=== PATIENT | female | born 1955 | race Caucasian/White ===

== ENCOUNTER 2017-02-02 10:03 | Observation (INO) | payer OTHER ==
[~2017-02-02] VITALS: Ht 165.1 cm; Wt 59.6 kg
[~2017-02-02 10:03] MED LIST: ALPR.25T PO; ALPR0.254 PO; AMIT25TA9 PO; AMLO10TA PO; ASP325TEC PO; ASP81TEC PO; ASPI-586 PO; ASPI-86 PO; ATOR20TA66 PO; ATRV10T PO; CEPH500C PO; CITA10TA70 PO; CLOP75TA PO; CLPD75T PO; CYCL10TA9 PO; FURO40TA4 PO; GLIP2.5T15 PO; GLIP5TAB13 PO; HYDR-3063 PO; HYDR-34 PO; HYDR118S10 PO; INSU100I14 SQ; INSU100I29 SQ; ISM30TCR PO; ISOS60TA PO; KCL10CCR PO; KCL20TCR PO; LISI-556 PO; LISI10TA2 PO; LISI1TAB PO; LVT.025T PO; MELA10CA PO; MELO-198 PO; METF-380 PO; METF500T4 PO; METO-333 PO; METO-351 PO; METO25TA PO; METO25TA2 PO; MTP25TSR PO; NTR.4SL SL; OMEG1CAP53 PO; OMEP40CA36 PO; OMG1KC PO; PNT40TEC PO; PRAV40TA PO; PROM12.59 PO; RABE20TA PO; RANO10003 PO; RANO500T PO; RANO500T2 PO; RANOLAZINE PO; SIMV20TA3 PO; SIMV40TA2 PO; TRAM50TA2 PO; VNL75CCR PO; ZLP5T PO; ZOLP5TAB6 PO
[2017-02-02 10:25] LABS: BASOPHILS % (AUTO) 0 % (0-10); EOSINOPHILS # (AUTO) 0.1 10^3/uL (0.0-0.3); EOSINOPHILS % (AUTO) 2 % (0-10); LYMPHOCYTES # (AUTO) 1.9 X 10^3 (1.0-4.0); LYMPHOCYTES % (AUTO) 30 % (12-44); MEAN CORPUSCULAR HEMOGLOBIN 30 PG (25-34); MEAN CORPUSCULAR HGB CONC 33 G/DL (32-36); MEAN CORPUSCULAR VOLUME 89 FL (80-99); MEAN PLATELET VOLUME 10.5 FL (7.4-10.4); MONOCYTES # (AUTO) 0.4 X 10^3 (0.0-1.0); MONOCYTES % (AUTO) 6 % (0-12); NEUTROPHILS # (AUTO) 4.1 X 10^3 (1.8-7.8); NEUTROPHILS % (AUTO) 62 % (42-75); PLATELET COUNT 229 10^3/uL (130-400); RED BLOOD COUNT 4.55 10^6/uL (4.35-5.85); RED CELL DISTRIBUTION WIDTH 12.5 % (10.0-14.5); WHITE BLOOD COUNT 6.6 10^3/uL (4.3-11.0)
[2017-02-02 10:35] LABS: INR 0.9 (0.8-1.4); PROTHROMBIN TIME PATIENT 12.1 SEC (12.2-14.7)
[2017-02-02 10:44] LABS: ALANINE AMINOTRANSFERASE 16 U/L (0-55); ALBUMIN 3.9 GM/DL (3.2-4.5); ALCOHOL < 10 MG/DL (<10); ANION GAP 14 MMOL/L (5-14); ASPARTATE AMINO TRANSFERASE 12 U/L (5-34); BILIRUBIN,TOTAL 0.5 MG/DL (0.1-1.0); BLOOD UREA NITROGEN 19 MG/DL (7-18); BUN/CREATININE RATIO 16; CALCIUM 9.2 MG/DL (8.5-10.1); CARBON DIOXIDE 21 MMOL/L (21-32); CHLORIDE 101 MMOL/L (98-107); CREATINE KINASE 70 U/L (29-168); CREATININE SERUM 1.16 MG/DL (0.60-1.30); GFR ESTIMATED 47; MAGNESIUM 1.6 MG/DL (1.8-2.4); POTASSIUM 4.3 MMOL/L (3.6-5.0); SODIUM 136 MMOL/L (135-145); TOTAL PROTEIN 6.5 GM/DL (6.4-8.2)
--- NOTE | 2017-02-02 10:45 | Diagnostic Imaging Report ---
INDICATION: Fatigue, coronary artery disease. COMPARISON: 03/20/2015. Single view of the chest demonstrates clear lungs bilaterally. The heart is mildly prominent but stable. Sternal wires midline. No pneumothorax, effusion, or infiltrate seen. IMPRESSION: No acute cardiopulmonary findings. Dictated by: Dictated on workstation # [id number]
[2017-02-02 10:49] LABS: GLUCOSE 466 MG/DL (70-105)
[2017-02-02 11:03] LABS: TROPONIN I < 0.30 NG/ML (<0.30)
--- NOTE | 2017-02-02 11:19 | Diagnostic Imaging Report ---
CT of the head without contrast. INDICATION : Blurred vision. Contiguous axial sections were taken through the skull. There are no prior studies available for comparison. There is no mass, shift of the midline, or hemorrhage to suggest an acute intracranial abnormality. The ventricles are not abnormally dilated. There are vague areas of low-density in the periventricular white matter bilaterally. There is also a small area of diminished density in the left basal ganglia. These findings are nonspecific but may be secondary to encephalomalacia from microvascular ischemia. There is no evidence for an asymmetric hyperdense vessel to suggest an area of acute ischemia. There is cortical atrophy present. The degree of atrophy is consistent with the patient's age. The bone windows show no sign of a fracture or of a destructive lesion. The orbits and sinuses were not visualized in their entirety, but where visualized there is no acute abnormality. IMPRESSION: 1. There is no evidence for an acute intracranial abnormality. There is no sign of a mass lesion either. 2. If clinical concern regarding an underlying abnormality persists, then MRI would be recommended for further study. Dictated by: Dictated on workstation # [id number]
--- NOTE | 2017-02-02 11:24 | ED General ---
General Chief Complaint: Neurological Problems Stated Complaint: TIRED/BLURRED VISION/AMS Nursing Triage Note: AMB TO ED ACCOMPIED BY MALE REPORTS SINCE YESTERDAY HAD BEEN CONFUSED AT TIMES. PATIENT REPORTS HAS BEEN TIRED. 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 ON ADMIT SLOW TO ANSWER QUESTIONS,BUT MALE FRIEND ANSWERS QUESTION, PATIETN BECOMES UPSET. WAS DRINKING PEPSI ON ADMIT. MALE FRIEND REPORTS SHE IS DIABETIC,BUT WILL NOT EAT RIGHT. Nursing Sepsis Screen: No Definite Risk Source of Information: Patient, Other (MALE S.O.) Exam Limitations: Other (BOTH PT AND MALE S.O. ARE POOR HISTORIANS AND S.O. INTERJECTS AND TRIES TO ANSWER FOR PT,AND STILL GIVES VERY LIMITED INFORMATION) History of Present Illness Time Seen by Provider: 10:08 Initial Comments PT ARRIVES VIA POV MALE S.O. STATES "SHE'S BEEN TALKING OUT OF HER HEAD AND SHE WANTS TO SLEEP ALL THE TIME" SINCE YESTERDAY PT IS DIABETIC, DOES NOT CHECK BLOOD SUGAR, DRINKING PEPSI AND HAD A SWEET ROLL THIS AM, AND HAS NOT TAKEN ANY OF HER MEDICATION SINCE YESTERDAY--IS ON BOTH INSULIN AND MEFORMIN FOR DIABETES MALE S.O. REPORTS THAT SHE DOES NOT FOLLOW ANY KIND OF DIET, DRINKS REGULAR POP ALL THE TIME, AND DOES NOT CHECK BLOOD SUGAR. PT STATES SHE WORKED ALL DAY YESTERDAY AND WENT TO WORK TODAY AT [employer]-- DROVE HERSELF THERE. APPARENTLY WAS SENT HOME FROM WORK DUE TO CONFUSION TODAY PT IS ABLE TO RECALL ALL EVENTS OF TODAY AND YESTERDAY AND THE WEEK, BUT THOUGHT PROCESS IS SOMEWHAT SCATTERED PT WAS SEEN AT [facility] ON Friday01/30/17 AND WAS GIVEN RX'S FOR METOPROLOL. LISINOPRIL AND LIPITOR PT STATES SHE HAS BEEN ON THEM IN THE PAST, BUT HAD TO STOP THEM BECAUSE THEY MADE HER SLEEPY, BUT THEN RESTARTED THEM AGAIN PT WITH LONG HISTORY OF NON-COMPLIANCE IN ALL ASPECTS OF CARE, AND PER OLD RECORDS, HAS QUIT TAKING HER MEDICATIONS AT TIMES IN THE PAST. PCP: [facility] Allergies and Home Medications Allergies Coded Allergies: No Known Drug Allergies (Unverified , 03/13/10) Home Medications Aspirin 81 Mg Tablet.dr, 81 MG PO DAILY, (Reported) Clopidogrel Bisulfate 75 Mg Tablet, 75 MG PO DAILY, (Reported) LAST FILLED #30 09-27-15 Insulin Aspart 300 Units/3 Ml Solution, 6 UNITS SQ AC, #1 Ref 0 Prescribed by: KACIE BADILLO on 09/19/152305 Insulin Detemir 100 Unit/1 Ml Insuln.pen, 10 UNIT SQ BID, #1 Ref 0 Prescribed by: KACIE BADILLO on 09/19/152305 Lisinopril 10 Mg Tablet, 10 MG PO DAILY, (Reported) Metoprolol Succinate 25 Mg Tab.er.24h, 50 MG PO DAILY, (Reported) Tramadol HCl 50 Mg Tablet, 50 MG PO Q4H PRN for PAIN, #14 Ref 0 Prescribed by: KACIE BADILLO on 10/04/15 1840 Constitutional: see HPI, malaise, weakness Respiratory: no symptoms reported, No cough, No short of breath Cardiovascular: no symptoms reported, No chest pain, No palpitations, No syncope Gastrointestinal: no symptoms reported, No abdominal pain, No diarrhea, No loss of appetite, No nausea Genitourinary: no symptoms reported Musculoskeletal: no symptoms reported Skin: no symptoms reported Psychiatric/Neurological: See HPI Hematologic/Lymphatic: No Symptoms Reported Immunological/Allergic: no symptoms reported Past Flmqlmf-Oofmjp-Tvvyrt Hx Patient Social History Alcohol Use: Denies Use Recreational Drug Use: No Smoking Status: Former Smoker (2 PPD, QUIT APPROXIMATELY 2011) Former Smoker/When Quit: Jun 30, 2009 Recent Foreign Travel: No Contact w/Someone Who Travel: No Recent Infectious Disease Expo: No Recent Hopitalizations: Yes Immunizations Up To Date Tetanus Booster (TDap): Unknown Date of Pneumonia Vaccine: Apr 18, 2013 Date of Influenza Vaccine: Apr 18, 2013 Seasonal Allergies Seasonal Allergies: No Surgeries HX Surgeries: Yes (STENTS X2,HYST/BSO ) Surgeries: Appendectomy, CABG, Coronary Stent, Gallbladder, Hysterectomy, Oophorectomy, Tonsillectomy Respiratory Hx Respiratory Disorders: Yes (HAS HOME O2 USES PRN) Respiratory Disorders: COPD Cardiovascular Hx 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) Cardiac Disorders: Coronary Artery Disease, High Cholesterol, Hypertension, Peripheral Vascular Neurological Hx Neurological Disorders: No Reproductive System Hx Reproductive Disorders: No (HYSTERECTOMY) Female Reproductive Disorders: Denies 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 Genitourinary Hx Genitourinary Disorders: No Gastrointestinal Hx Gastrointestinal Disorders: Yes Gastrointestinal Disorders: Gastroesophageal Reflux Musculoskeletal Hx Musculoskeletal Disorders: Yes Musculoskeletal Disorders: Arthritis, Chronic Back Pain Endocrine Hx Endocrine Disorders: Yes (INSULIN + PILLS) Endocrine Disorders: Diabetes, Insulin dep, Diabetes, Non-Insulin dep HEENT HX ENT Disorders: Yes HEENT Disorders: Cataract Loss of Vision: Denies Hearing Impairment: Denies Cancer Hx Cancer: No Psychosocial Hx Psychiatric Problems: Yes Behavioral Health Disorders: Depression Integumentary HX Skin/Integumentary Disorder: No Blood Transfusions Hx Blood Disorders: No Adverse Reaction to a Blood Tr: No Family Medical History Significant Family History: Heart Disease, Cancer Family Medial History: Cancer 03 FATHER 03 MOTHER Cancer of colon 03 FATHER Family history: Cardiovascular disease 03 FATHER Malignant neoplasm of lung 03 MOTHER Myocardial infarction 03 FATHER Physical Exam Vital Signs Vital Sign - Last 12Hours 02/02/17 10:03 Temp 97.9 Pulse 70 Resp 18 B/P (MAP) 207/80 Pulse Ox 94 O2 Delivery Room Air Capillary Refill : Less Than 3 Seconds General Appearance: No Apparent Distress, WD/WN, Other (SOMEWHAT DROWSY ON ARRIVAL, SLIGHTLY SLOW MENTATION; GAIT SLIGHTLY UNSTEADY, BUT IS ABLE TO WALK ON HER OWN) HEENT: PERRL/EOMI, Normal ENT Inspection Neck: Full Range of Motion, Normal Inspection, Non Tender, Supple Respiratory: Normal Breath Sounds, No Accessory Muscle Use, No Respiratory Distress Cardiovascular: Regular Rate, Rhythm, No Edema, No JVD, No Murmur, Normal Peripheral Pulses Gastrointestinal: Normal Bowel Sounds, No Organomegaly, No Pulsatile Mass, Non Tender, Soft Back: No CVA Tenderness Extremity: Normal Capillary Refill, Normal Inspection, Normal Range of Motion, Non Tender, No Calf Tenderness, No Pedal Edema Neurologic/Psychiatric: Alert, Oriented x3, No Motor/Sensory Deficits, affiliate manager II- XII Norm as Tested, No Aphasia, Other (DROWSY, SLIGHTLY SLOW MENTATION, THOUGHT PROCESS SOMEWHAT SCATTERED, BUT NOT ACTUALLY CONFUSED. SPEECH IS CLEAR) Skin: Normal Color, Warm/Dry Progress/Results/Core Measures Results/Orders Lab Results Laboratory Tests Test 02/02/17 10:15 02/02/17 10:17 02/02/17 11:25 02/02/17 12:18 Range/Units Glucometer 434 *H 337 H 70-110 MG/DL White Blood Count 6.6 4.3-11.0 10^3/uL Red Blood Count 4.55 4.35-5.85 10^6/uL Hemoglobin 13.5 11.5-16.0 G/DL Hematocrit 41 35-52 % Mean Corpuscular Volume 89 80-99 FL Mean Corpuscular Hemoglobin 30 25-34 PG Mean Corpuscular Hemoglobin Concent 33 32-36 G/DL Red Cell Distribution Width 12.5 10.0-14.5 % Platelet Count 229 130-400 10^3/uL Mean Platelet Volume 10.5 H 7.4-10.4 FL Neutrophils (%) (Auto) 62 42-75 % Lymphocytes (%) (Auto) 30 12-44 % Monocytes (%) (Auto) 6 0-12 % Eosinophils (%) (Auto) 2 0-10 % Basophils (%) (Auto) 0 0-10 % Neutrophils # (Auto) 4.1 1.8-7.8 X 10^3 Lymphocytes # (Auto) 1.9 1.0-4.0 X 10^3 Monocytes # (Auto) 0.4 0.0-1.0 X 10^3 Eosinophils # (Auto) 0.1 0.0-0.3 10^3/uL Basophils # (Auto) 0.0 0.0-0.1 10^3/uL Prothrombin Time 12.1 L 12.2-14.7 SEC INR Comment 0.9 0.8-1.4 Activated Partial Thromboplast Time 20 L 24-35 SEC Sodium Level 136 135-145 MMOL/L Potassium Level 4.3 3.6-5.0 MMOL/L Chloride Level 101 98-107 MMOL/L Carbon Dioxide Level 21 21-32 MMOL/L Anion Gap 14 5-14 MMOL/L Blood Urea Nitrogen 19 H 7-18 MG/DL Creatinine 1.16 0.60-1.30 MG/DL Estimat Glomerular Filtration Rate 47 BUN/Creatinine Ratio 16 Glucose Level 466 *H 70-105 MG/DL Calcium Level 9.2 8.5-10.1 MG/DL Magnesium Level 1.6 L 1.8-2.4 MG/DL Total Bilirubin 0.5 0.1-1.0 MG/DL Aspartate Amino Transf (AST/SGOT) 12 5-34 U/L Alanine Aminotransferase (ALT/SGPT) 16 0-55 U/L Alkaline Phosphatase 88 40-136 U/L Total Creatine Kinase 70 29-168 U/L Creatine Kinase MB 2.0 <6.6 NG/ML Troponin I < 0.30 <0.30 NG/ML Total Protein 6.5 6.4-8.2 GM/DL Albumin 3.9 3.2-4.5 GM/DL TSH Sur[place] Testing 1.68 0.35-4.94 UIU/ML Serum Alcohol < 10 <10 MG/DL Urine Color YELLOW Urine Clarity CLEAR Urine pH 6 5-9 Urine Specific Jenkins 1.010 L 1.016-1.022 Urine Protein 2+ H NEGATIVE Urine Glucose (UA) 4+ H NEGATIVE Urine Ketones NEGATIVE NEGATIVE Urine Nitrite NEGATIVE NEGATIVE Urine Bilirubin NEGATIVE NEGATIVE Urine Urobilinogen NORMAL NORMAL MG/DL Urine Leukocyte Esterase NEGATIVE NEGATIVE Urine RBC (Auto) NEGATIVE NEGATIVE Urine RBC NONE /HPF Urine WBC NONE /HPF Urine Squamous Epithelial Cells RARE /HPF Urine Crystals NONE /LPF Urine Bacteria NEGATIVE /HPF Urine Casts NONE /LPF Urine Mucus NEGATIVE /LPF Urine Culture Indicated NO Urine Opiates Screen NEGATIVE NEGATIVE Urine Oxycodone Screen NEGATIVE NEGATIVE Urine Methadone Screen NEGATIVE NEGATIVE Urine Propoxyphene Screen NEGATIVE NEGATIVE Urine Barbiturates Screen NEGATIVE NEGATIVE Ur Tricyclic Antidepressants Screen NEGATIVE NEGATIVE Urine Phencyclidine Screen NEGATIVE NEGATIVE Urine Amphetamines Screen NEGATIVE NEGATIVE Urine Methamphetamines Screen NEGATIVE NEGATIVE Urine Benzodiazepines Screen NEGATIVE NEGATIVE Urine Cocaine Screen NEGATIVE NEGATIVE Urine Cannabinoids Screen NEGATIVE NEGATIVE Test 02/02/17 13:11 02/02/17 16:31 Range/Units Glucometer 295 H 224 H 70-110 MG/DL My Orders Orders - JASMIN RUSHING DO Saline Lock/Iv-Start (02/02/17 10:13) Ekg Tracing (02/02/17 10:13) Monitor-Rhythm Ecg Trace Only (02/02/17 10:13) Ct Head Wo-R/O Stroke (02/02/17 10:13) Alcohol (02/02/17 10:13) Cbc With Automated Diff (02/02/17 10:13) Comprehensive Metabolic Panel (02/02/17 10:13) Creatine Kinase (02/02/17 10:13) Creatine Kinase Mb (02/02/17 10:13) Drug Screen Stat (Urine) (02/02/17 10:13) Magnesium (02/02/17 10:13) Protime With Inr (02/02/17 10:13) Partial Thromboplastin Time (02/02/17 10:13) Thyroid Analyzer (02/02/17 10:13) Troponin I (02/02/17 10:13) Ua Culture If Indicated (02/02/17 10:13) Chest 1 View, Ap/Pa Only (02/02/17 10:13) Arterial Blood Gas (02/02/17 10:24) Saline Lock/Iv-Start (02/02/17 11:27) Ns Iv 1000 Ml (Sodium Chloride 0.9%) (02/02/17 11:27) Insulin (Regular) Human (Humulin R (Per (02/02/17 11:30) Medications Given in ED Current Medications Medications Dose Ordered Sig/Sean Route Start Time Stop Time Status Last Admin Dose Admin Insulin Human Regular 20 unit ONCE ONCE IV 02/02/17 11:30 02/02/17 11:31 DC 02/02/17 11:42 20 UNIT Sodium Chloride 1,000 ml @ 0 mls/hr Q0M ONCE IV 02/02/17 11:27 02/02/17 11:29 DC 02/02/17 11:42 1,000 MLS/HR Vital Signs/I&O Vital Sign - Last 12Hours 02/02/17 02/02/17 02/02/17 02/02/17 10:03 12:32 13:00 13:05 Temp 97.9 97.9 Pulse 70 62 55 Resp 18 18 18 B/P (MAP) 207/80 169/76 Pulse Ox 94 98 94 95 O2 Delivery Room Air Room Air Room Air 02/02/17 16:00 Temp 97.4 Pulse 64 Resp 18 B/P (MAP) 176/83 Pulse Ox 95 O2 Delivery Room Air Blood Pressure Mean: 122 Point of Care Testing Finger Stick Blood Glucose: 424 Blood Glucose Action Taken: NOTIFIED. Progress Note : Progress Note NO DETERIORATION IN PT'S CONDITION DURING ER STAY PT RESTED/SLEPT FOR MOST OF ER STAY ACCUCHECK 337 AT TIME OF ADMIT ECG Initial ECG Impression Time: 10:25 Initial ECG Rate: 75 Initial ECG Rhythm: Normal Sinus Initial ECG Impression: Nonspecific Changes Diagnostic Imaging Comments CT HEAD--NO ACUTE PROCESS, CHRONIC CHANGES CXR--NO ACUTE PROCESS PER RADIOLOGIST REPORTS @ 1127 Departure Communication Progress Notes SPOKE WITH DR. DAVIDSON, ACCEPTS PT FOR ADMIT. Impression Impression: Primary Impression: Uncontrolled diabetes mellitus with hyperglycemia Additional Impressions: Altered mental status Non-compliance Disposition: ADMITTED INPATIENT Condition: Stable Decision to Admit Reason: Admit from ER (General) Decision to Admit/Date: Feb 02, 2017 Time/Decision to Admit Time: 11:30 Departure-Patient Inst. Referrals: [facility] (PCP/Family) Primary Care Physician JASMIN RUSHING DO Feb 02, 2017 11:24
[2017-02-02] MEDS ORDERED: NS IV 1000 ML 1,000 ML IV ONE (11:27)
[2017-02-02] MEDS ORDERED: inSUlin (REGULAR) HUMAN 1 UNIT/0.01 ML (CHARGE PER UNIT) IV ONE (11:30)
[2017-02-02 11:34] LABS: BILIRUBIN,URINE NEGATIVE (NEGATIVE); KETONES,URINE NEGATIVE (NEGATIVE); LEUKOCYTE ESTERASE ,URINE NEGATIVE (NEGATIVE); NITRITE,URINE NEGATIVE (NEGATIVE); PH,URINE 6 (5-9); PROTEIN,URINE 2+ (NEGATIVE); UROBILINOGEN,URINE NORMAL (NORMAL)
[2017-02-02 11:41] LABS: SQUAMOUS EPITHELIAL CELL,UR RARE /HPF
[2017-02-02 13:00] VITALS: BP 169/76
[2017-02-02] MEDS: NS IV 1000 ML 1,000 ML IV SCH ×2 (13:10→21:10)
[2017-02-02] MEDS ORDERED: CATHETER FLUSH 10 ML SYR IV PRN (13:15)
[2017-02-02 16:00] VITALS: BP 176/83
[2017-02-02] MEDS: inSUlin (REGULAR) HUMAN 1 UNIT/0.01 ML (CHARGE PER UNIT) SC SCH ×2 (17:31→21:08)
[2017-02-02 19:20] VITALS: BP 159/78
[2017-02-02 23:35] VITALS: BP 157/82
[2017-02-03 03:20] VITALS: BP 136/82
[2017-02-03 04:51] LABS: BASOPHILS % (AUTO) 0 % (0-10); EOSINOPHILS # (AUTO) 0.1 10^3/uL (0.0-0.3); EOSINOPHILS % (AUTO) 2 % (0-10); LYMPHOCYTES # (AUTO) 2.3 X 10^3 (1.0-4.0); LYMPHOCYTES % (AUTO) 42 % (12-44); MEAN CORPUSCULAR HEMOGLOBIN 29 PG (25-34); MEAN CORPUSCULAR HGB CONC 33 G/DL (32-36); MEAN CORPUSCULAR VOLUME 90 FL (80-99); MEAN PLATELET VOLUME 10.5 FL (7.4-10.4); MONOCYTES # (AUTO) 0.6 X 10^3 (0.0-1.0); MONOCYTES % (AUTO) 10 % (0-12); NEUTROPHILS # (AUTO) 2.5 X 10^3 (1.8-7.8); NEUTROPHILS % (AUTO) 45 % (42-75); PLATELET COUNT 217 10^3/uL (130-400); RED BLOOD COUNT 4.26 10^6/uL (4.35-5.85); RED CELL DISTRIBUTION WIDTH 12.3 % (10.0-14.5); WHITE BLOOD COUNT 5.4 10^3/uL (4.3-11.0)
[2017-02-03 05:21] LABS: ALBUMIN 3.2 GM/DL (3.2-4.5); BILIRUBIN,TOTAL 0.4 MG/DL (0.1-1.0); CALCIUM 8.5 MG/DL (8.5-10.1); CREATININE SERUM 0.97 MG/DL (0.60-1.30); TOTAL PROTEIN 5.4 GM/DL (6.4-8.2)
[2017-02-03] MEDS: NS IV 1000 ML 1,000 ML IV SCH ×2 (06:11→13:30)
[2017-02-03] MEDS: inSUlin (REGULAR) HUMAN 1 UNIT/0.01 ML (CHARGE PER UNIT) SC SCH ×3 (06:11→16:34)
[2017-02-03 08:00] VITALS: BP 198/90
--- NOTE | 2017-02-03 10:13 | Short Stay Summary ---
HPI History of Present Illness: 62yo woman presented to hospital last night with complaints of confusion. Patient states she had gone to work at the [employer] and became increasingly confused. She does not remember coming to hospital. She does have diabetes and has not seen her PCP in a long time. She gets her insulin from [facility] but does not know the name of her PCP. She denies any illicit drug intake or pills not prescribed to her. Does not drink alcohol regularly. Denies any neurological deficits such as paresthesias or weakness. Source: patient Exam Limitations: no limitations Date seen by provider: Feb 03, 2017 Time Seen by Provider: 08:30 Attending Physician Nohelia Bowles MD PCP [facility] Date of Admission Feb 02, 2017 at 12:12 pm Home Medications Home Medications Reviewed patient Home Medication Reconciliation Form Allergies Coded Allergies: No Known Drug Allergies (Unverified , 03/13/10) RLP-Goabxl-Onrpyb Hx Patient Social History Alcohol Use: Denies Use Recreational Drug Use: No Smoking Status: Former Smoker (2 PPD, QUIT APPROXIMATELY 2011) Former smoker/When Quit: Jun 30, 2009 Recent Foreign Travel: No Contact w/other who traveled: No Recent Hopitalizations: Yes Recent Infectious Disease Expo: No Physical Abuse Screen: No Sexual Abuse: No Immunizations Up To Date Tetanus Booster (TDap): Unknown Date of Pneumonia Vaccine: Apr 18, 2013 Date of Influenza Vaccine: Apr 18, 2013 Past Medical History 1. CAD- CABG x 3. Cath with PTCA x2 to RCA by Dr. Nova 01-09, Cath 02-19-13 with recommendation for staged procedure in the RCA for an area between the stents. 2. CP- Unstable angina 3. Chronic Compensated Cardiomyopathy with and ejection fraction of 45%- on AUGUSTINE-I 4. Diabetes 5. Depression 6. Hypertension 7. Osteoarthritis 8. SSS with bradycardia- inability to tolerate Beta Blockers 9. COPD-uses home O2 PRN 10. ALBERTO w BSO 1980 11. Tonsillectomy 18 years of age Family Medical History Significant Family History: Heart Disease, Cancer Family History: Cancer 03 FATHER 03 MOTHER Cancer of colon 03 FATHER Family history: Cardiovascular disease 03 FATHER Malignant neoplasm of lung 03 MOTHER Myocardial infarction 03 FATHER Review of Systems ([facility]) Constitutional: no symptoms reported All Other Systems Reviewed Negative Unless Noted: Yes (Negative excepted noted.) Reviewed Test Results Reviewed Test Results Lab Laboratory Tests Test 02/02/17 10:15 02/02/17 10:17 02/02/17 11:25 02/02/17 12:18 Range/Units Glucometer 434 *H 337 H 70-110 MG/DL White Blood Count 6.6 4.3-11.0 10^3/uL Red Blood Count 4.55 4.35-5.85 10^6/uL Hemoglobin 13.5 11.5-16.0 G/DL Hematocrit 41 35-52 % Mean Corpuscular Volume 89 80-99 FL Mean Corpuscular Hemoglobin 30 25-34 PG Mean Corpuscular Hemoglobin Concent 33 32-36 G/DL Red Cell Distribution Width 12.5 10.0-14.5 % Platelet Count 229 130-400 10^3/uL Mean Platelet Volume 10.5 H 7.4-10.4 FL Neutrophils (%) (Auto) 62 42-75 % Lymphocytes (%) (Auto) 30 12-44 % Monocytes (%) (Auto) 6 0-12 % Eosinophils (%) (Auto) 2 0-10 % Basophils (%) (Auto) 0 0-10 % Neutrophils # (Auto) 4.1 1.8-7.8 X 10^3 Lymphocytes # (Auto) 1.9 1.0-4.0 X 10^3 Monocytes # (Auto) 0.4 0.0-1.0 X 10^3 Eosinophils # (Auto) 0.1 0.0-0.3 10^3/uL Basophils # (Auto) 0.0 0.0-0.1 10^3/uL Prothrombin Time 12.1 L 12.2-14.7 SEC INR Comment 0.9 0.8-1.4 Activated Partial Thromboplast Time 20 L 24-35 SEC Sodium Level 136 135-145 MMOL/L Potassium Level 4.3 3.6-5.0 MMOL/L Chloride Level 101 98-107 MMOL/L Carbon Dioxide Level 21 21-32 MMOL/L Anion Gap 14 5-14 MMOL/L Blood Urea Nitrogen 19 H 7-18 MG/DL Creatinine 1.16 0.60-1.30 MG/DL Estimat Glomerular Filtration Rate 47 BUN/Creatinine Ratio 16 Glucose Level 466 *H 70-105 MG/DL Calcium Level 9.2 8.5-10.1 MG/DL Magnesium Level 1.6 L 1.8-2.4 MG/DL Total Bilirubin 0.5 0.1-1.0 MG/DL Aspartate Amino Transf (AST/SGOT) 12 5-34 U/L Alanine Aminotransferase (ALT/SGPT) 16 0-55 U/L Alkaline Phosphatase 88 40-136 U/L Total Creatine Kinase 70 29-168 U/L Creatine Kinase MB 2.0 <6.6 NG/ML Troponin I < 0.30 <0.30 NG/ML Total Protein 6.5 6.4-8.2 GM/DL Albumin 3.9 3.2-4.5 GM/DL TSH [place] Testing 1.68 0.35-4.94 UIU/ML Serum Alcohol < 10 <10 MG/DL Urine Color YELLOW Urine Clarity CLEAR Urine pH 6 5-9 Urine Specific [place] 1.010 L 1.016-1.022 Urine Protein 2+ H NEGATIVE Urine Glucose (UA) 4+ H NEGATIVE Urine Ketones NEGATIVE NEGATIVE Urine Nitrite NEGATIVE NEGATIVE Urine Bilirubin NEGATIVE NEGATIVE Urine Urobilinogen NORMAL NORMAL MG/DL Urine Leukocyte Esterase NEGATIVE NEGATIVE Urine RBC (Auto) NEGATIVE NEGATIVE Urine RBC NONE /HPF Urine WBC NONE /HPF Urine Squamous Epithelial Cells RARE /HPF Urine Crystals NONE /LPF Urine Bacteria NEGATIVE /HPF Urine Casts NONE /LPF Urine Mucus NEGATIVE /LPF Urine Culture Indicated NO Urine Opiates Screen NEGATIVE NEGATIVE Urine Oxycodone Screen NEGATIVE NEGATIVE Urine Methadone Screen NEGATIVE NEGATIVE Urine Propoxyphene Screen NEGATIVE NEGATIVE Urine Barbiturates Screen NEGATIVE NEGATIVE Ur Tricyclic Antidepressants Screen NEGATIVE NEGATIVE Urine Phencyclidine Screen NEGATIVE NEGATIVE Urine Amphetamines Screen NEGATIVE NEGATIVE Urine Methamphetamines Screen NEGATIVE NEGATIVE Urine Benzodiazepines Screen NEGATIVE NEGATIVE Urine Cocaine Screen NEGATIVE NEGATIVE Urine Cannabinoids Screen NEGATIVE NEGATIVE Test 02/02/17 13:11 02/02/17 16:31 02/02/17 20:51 02/03/17 04:27 Range/Units Glucometer 295 H 224 H 262 H 70-110 MG/DL White Blood Count 5.4 4.3-11.0 10^3/uL Red Blood Count 4.26 L 4.35-5.85 10^6/uL Hemoglobin 12.4 11.5-16.0 G/DL Hematocrit 38 35-52 % Mean Corpuscular Volume 90 80-99 FL Mean Corpuscular Hemoglobin 29 25-34 PG Mean Corpuscular Hemoglobin Concent 33 32-36 G/DL Red Cell Distribution Width 12.3 10.0-14.5 % Platelet Count 217 130-400 10^3/uL Mean Platelet Volume 10.5 H 7.4-10.4 FL Neutrophils (%) (Auto) 45 42-75 % Lymphocytes (%) (Auto) 42 12-44 % Monocytes (%) (Auto) 10 0-12 % Eosinophils (%) (Auto) 2 0-10 % Basophils (%) (Auto) 0 0-10 % Neutrophils # (Auto) 2.5 1.8-7.8 X 10^3 Lymphocytes # (Auto) 2.3 1.0-4.0 X 10^3 Monocytes # (Auto) 0.6 0.0-1.0 X 10^3 Eosinophils # (Auto) 0.1 0.0-0.3 10^3/uL Basophils # (Auto) 0.0 0.0-0.1 10^3/uL Sodium Level 139 135-145 MMOL/L Potassium Level 4.0 3.6-5.0 MMOL/L Chloride Level 109 H 98-107 MMOL/L Carbon Dioxide Level 19 L 21-32 MMOL/L Anion Gap 11 5-14 MMOL/L Blood Urea Nitrogen 17 7-18 MG/DL Creatinine 0.97 0.60-1.30 MG/DL Estimat Glomerular Filtration Rate 58 BUN/Creatinine Ratio 18 Glucose Level 253 H 70-105 MG/DL Calcium Level 8.5 8.5-10.1 MG/DL Total Bilirubin 0.4 0.1-1.0 MG/DL Aspartate Amino Transf (AST/SGOT) 10 5-34 U/L Alanine Aminotransferase (ALT/SGPT) 14 0-55 U/L Alkaline Phosphatase 70 40-136 U/L Total Protein 5.4 L 6.4-8.2 GM/DL Albumin 3.2 3.2-4.5 GM/DL Test 02/03/17 05:40 Range/Units Glucometer 226 H 70-110 MG/DL Radiology Date of Exam: 02/02/17 CT HEAD WO-R/O STROKE CT of the head without contrast. INDICATION : Blurred vision. Contiguous axial sections were taken through the skull. There are no prior studies available for comparison. There is no mass, shift of the midline, or hemorrhage to suggest an acute intracranial abnormality. The ventricles are not abnormally dilated. There are vague areas of low-density in the periventricular white matter bilaterally. There is also a small area of diminished density in the left basal ganglia. These findings are nonspecific but may be secondary to encephalomalacia from microvascular ischemia. There is no evidence for an asymmetric hyperdense vessel to suggest an area of acute ischemia. There is cortical atrophy present. The degree of atrophy is consistent with the patient's age. The bone windows show no sign of a fracture or of a destructive lesion. The orbits and sinuses were not visualized in their entirety, but where visualized there is no acute abnormality. IMPRESSION: 1. There is no evidence for an acute intracranial abnormality. There is no sign of a mass lesion either. 2. If clinical concern regarding an underlying abnormality persists, then MRI would be recommended for further study. Physical Exam-([facility]) Physical Exam Vital Signs VS - Last 72 Hours, by Label 02/02/17 02/02/17 02/02/17 02/02/17 10:03 12:32 13:00 13:05 Temp 97.9 97.9 Pulse 70 62 55 Resp 18 18 18 B/P (MAP) 207/80 169/76 Pulse Ox 94 98 94 95 O2 Delivery Room Air Room Air Room Air 02/02/17 02/02/17 02/02/17 02/02/17 16:00 19:06 19:20 23:35 Temp 97.4 97.9 98.8 Pulse 64 58 63 65 Resp 18 18 18 B/P (MAP) 176/83 159/78 157/82 Pulse Ox 95 96 97 O2 Delivery Room Air Room Air Room Air 02/03/17 02/03/17 02/03/17 01:00 03:20 08:00 Temp 98.1 98.0 Pulse 59 65 64 Resp 18 24 B/P (MAP) 136/82 198/90 Pulse Ox 95 94 O2 Delivery Room Air Room Air Capillary Refill : Less Than 3 Seconds General Appearance: WD/WN, no apparent distress HEENT: PERRL/EOMI, normal ENT inspection, pharynx normal Neck: non-tender, full range of motion, supple, normal inspection Respiratory: chest non-tender, lungs clear, normal breath sounds, no respiratory distress, no accessory muscle use Cardiovascular: regular rate, rhythm, no edema, no gallop, no JVD, no murmur Gastrointestinal: normal bowel sounds, non tender, soft, no organomegaly, no pulsatile mass Extremities: normal range of motion, non-tender, normal inspection, no pedal edema, no calf tenderness, normal capillary refill Neurologic/Psychiatric: bagging salvager II-XII nml as tested, no motor/sensory deficits, alert, normal mood/affect, oriented x 3 Skin: normal color, warm/dry Short Stay Diagnosis Discharge Diagnosis-Short Stay Admission Diagnosis ALTERED MENTAL STATUS DIABETES TYPE 2 UNCONTROLLED WITH HYPERGLYCEMIA MEDICAL NONCOMPLIANCE Final Discharge Diagnosis SAME Conclusion Plan I reviewed Judy's clinic chart in addition to her labs from hospital. She re- established with [facility] [address] on 01-30-17 but had not been to clinic in almost a year prior. [facility] did start her on an insulin regimen. Judy stated in augusto visit that she had stopped all her meds because she just didn't want to take them. I anticipate that she has started using her insulin as well as BP meds again and that she is having difficulty adjusting to the new regimen. I will restart this same regimen, and we will plan for closer follow up with me and with Libby Longoria, our privacy manager. Pt is agreeable to plan. Clinical Quality Measures DVT/VTE Risk/Contraindication: Risk Factor Score Per Nursin RFS Level Per Nursing on Admit: 3=High Copy Copies To 1: BREA KRUGER APRN, MD Feb 03, 2017 10:13 am
[2017-02-03] MEDS ORDERED: INSU100V5 SQ (11:02)
[2017-02-03] MEDS ORDERED: LISI1TAB8 PO (11:28)
[2017-02-03] MEDS ORDERED: ATOR10TA66 PO (11:29)
[2017-02-03] MEDS ORDERED: ASPIRIN E.C. 81 MG (ECOTRIN) TAB PO SCH (11:43)
[2017-02-03] MEDS ORDERED: CLOPIDOGREL 75 MG (PLAVIX) TABLET PO SCH (11:44)
--- NOTE | 2017-02-03 11:46 | Discharge Instructions ---
Discharge [facility] Discharge Medications New, Converted or Re-Newed RX: Other Continued Medications: Aspirin (Aspir 81) 81 Mg Tablet.dr 81 MG PO DAILY, TAB Atorvastatin Calcium (Atorvastatin Calcium) 10 Mg Tablet 10 MG PO HS, TAB Clopidogrel Bisulfate (Plavix 75 Mg) 75 Mg Tablet 75 MG PO DAILY LAST FILLED #30 09-27-14 Insulin Determir (Levemir) 1,000 Units/10 Ml Soln 15 UNITS SQ HS Lisinopril/Hydrochlorothiazide (Lisinopril-Hctz 20-12.5 mg Tab) 1 Each Tablet 1 TAB PO DAILY, TAB Metoprolol Succinate (Toprol Xl) 25 Mg Tab.er.24h 25 MG PO DAILY, TAB Patient Instructions Goal/Follow Up Appt: DR TAN ON 02/11 AT 1:40 Patient Instructions: PLEASE TAKE ALL MEDICATIONS PRESCRIBED. WE WILL ADD A MEAL-TIME INSULIN AT YOUR HOSPITAL FOLLOW UP. PLEASE BRING A LOG OF YOUR BLOOD SUGARS. TAKE THEM 2 TIMES PER DAY. Return to The Hospital For: INCREASED CONFUSION, WEAKNESS Activity & Diet Discharge Diet: ADA Diet Activity as Tolerated: Yes Copy Copies To 1: BREA KRUGER APRN, MD Feb 03, 2017 11:46
[2017-02-03] MEDS ORDERED: lisINopril 20 MG (ZESTRIL) TAB PO SCH (11:49)
[2017-02-03] MEDS ORDERED: HYDROCHLOROTHIAZIDE 12.5 MG (HCTZ) CAP PO SCH (11:50)
[2017-02-03 12:00] VITALS: BP 199/90
[2017-02-03 15:10] VITALS: BP 190/80
[2017-02-03 15:30] VITALS: BP 196/81
[2017-02-03 18:39] VITALS: BP 196/81
== END 2017-02-03 11:43 | disposition home or self-care (01) ==
LOC: EDUNIT# 10:03 → ER 10:07 → 4TH 12:12 → UNDOADMOB 12:12 → 4TH 12:26 → UNDODISOB 02-03 18:44
PROVIDERS: ADMIT Family Medicine; ATTEND Family Medicine
DX: E11.65 Type 2 diabetes mellitus with hyperglycemia (principal); I10 Essential (primary) hypertension; I25.10 Atherosclerotic heart disease of native coronary artery without angina pectoris; J44.9 Chronic obstructive pulmonary disease, unspecified; F33.9 Major depressive disorder, recurrent, unspecified; Z91.14 Patient's other noncompliance with medication regimen; Z79.84 Long term (current) use of oral hypoglycemic drugs; Z79.4 Long term (current) use of insulin; Z79.82 Long term (current) use of aspirin; Z79.02 Long term (current) use of antithrombotics/antiplatelets; Z87.891 Personal history of nicotine dependence; Z95.1 Presence of aortocoronary bypass graft; Z95.5 Presence of coronary angioplasty implant and graft
CPT/HCPCS: 36415; 70450; 71010; 80053; 80306; 80320; 81000; 82550; 82553; 82962; 83735; 84443; 84484; 85025; 85610; 85730; 93005; 93041; G0378

== ENCOUNTER 2017-02-10 19:48 | Emergency (ER) | payer SELFPAY ==
[~2017-02-10] VITALS: Ht 165.1 cm; Wt 59.6 kg
[~2017-02-10 19:48] MED LIST changes: +ATOR10TA66 PO; +INSU100V5 SQ; +LISI1TAB8 PO
--- OUTSIDE RECORDS SUMMARY | 2017-02-10 19:54 | XMS REPORT ---
Author Author MICHAEL BURGOS Organization [employer] Address Unknown Phone Unavailable Care Team Providers Care Double Cutter Name Role Phone MICHAEL BURGOS CP Unavailable Allergies, Adverse Reactions, Alerts Substance Reaction Event Type N.K.D.A. Info Not Available Non Drug Allergy Problems Problem Type Condition Code Onset Dates Condition Status Assessment Cystocele N81.10 Active Problem Peripheral vascular disease I73.9 Active Assessment Diabetes E11.9 Active Problem CAD (coronary artery disease) I25.10 Active Problem History of coronary artery bypass graft Z95.1 Active Problem Diabetes E11.9 Active Problem Hypercholesteremia E78.0 Active Problem History of carotid stenosis Z86.79 Active Problem Family history of diabetes mellitus Z83.3 Active Problem HTN (hypertension) I10 Active Medications Medication Code System Code Instructions Start Date End Date Status Dosage MetFORMIN HCl ER [facility] [address]-17 500 MG Orally 2 times a day September 21, 2015 2 tablets Ondansetron [facility] [address]-37 4 MG Orally every 8 hrs September 29, 2015 1 tablet on the tongue and allow to dissolve Metoprolol Succinate ER [facility] [address]-10 25 MG Orally Once a day August 2 tablets Lisinopril-Hydrochlorothiazide [facility] [address]-36 20-12.5 MG Orally Once a day Aug 21, 2012 take 1 tablet by oral route once daily Tradjenta [facility] [address]-32 5 MG Orally Once a day October 27, 2015 1 tablet Aspirin [facility] [address]-83 81 MG Orally Once a day Aug 21, 2012 1 tablet by Oral route 1 time per day Fish Oil Concentrate [facility] [address] 1000 MG Orally Twice a day January 18, 2013 1 capsule Plavix [facility] [address]-23 75 MG Orally Once a day January 18, 2013 1 tablet by Oral route 1 time per day Lipitor [facility] [address]-08 10 MG Orally Once a day January 18, 2013 take 1 tablet (10 mg) by oral route once daily at bedtime BD Insulin Syr Ultrafine II [facility] 8290-906972 31G X 5/16 subq 2 times a day September 21, 2015 10 units Levemir [facility] [address]-20 100 UNIT/ML Subcutaneous 2 times a day September 21, 2015 15 units in the morning and 15 units at bedtime. Procedures Procedure Coding System Code Date Office Visit, Est Pt., Level 3 CPT-4 55374 October 27, 2015 GLYCATED HEMOGLOBIN TEST CPT-4 70198 October 27, 2015 Vital Signs Date/Time: October 27, 2015 Temperature 98.0 F Weight 136.8 lbs Height 61 in BMI 25.85 Index Blood Pressure Diastolic 70 mmHg Blood Pressure Systolic 122 mmHg Cardiac Monitoring Heart Rate 78 bpm Results Name Result Date Reference Range Unit Abnormality Flag A1C (IN HOUSE) ----A1C IN HOUSE >14.0 20151027 4.3 - 5.6 % ----Previous A1c n/a 20151027 ----Lot [id number] ----Exp date [id number] Summary Purpose [employer] Submission
--- OUTSIDE RECORDS SUMMARY | 2017-02-10 19:54 | XMS REPORT ---
Author Author MICHAEL BURGOS Organization [employer] Address Unknown Phone Unavailable Care Team Providers Care Underwriting Director Name Role Phone MICHAEL BURGOS CP Unavailable Allergies No Known Allergies Problems Problem Type Condition Code Onset Dates Condition Status Problem Peripheral vascular disease I73.9 Active Problem CAD (coronary artery disease) I25.10 Active Problem History of coronary artery bypass graft Z95.1 Active Problem Diabetes E11.9 Active Problem Hypercholesteremia E78.0 Active Problem History of carotid stenosis Z86.79 Active Problem Family history of diabetes mellitus Z83.3 Active Problem HTN (hypertension) I10 Active Medications Medication Code System Code Instructions Start Date End Date Status Dosage Levemir [facility][NOTE 3] [address]-62 100 UNIT/ML Subcutaneous 2 times a day September 21, 2015 20 units in the morning and 20 units at bedtime. Results No Known Results Summary Purpose [employer] Submission
--- OUTSIDE RECORDS SUMMARY | 2017-02-10 19:54 | XMS REPORT ---
Author Author MICHAEL BURGOS Organization [employer] Address Unknown Phone Unavailable Care Team Providers Care Piling Cutter Name Role Phone MICHAEL BURGOS CP Unavailable Allergies, Adverse Reactions, Alerts Substance Reaction Event Type N.K.D.A. Info Not Available Non Drug Allergy Problems Problem Type Condition Code Onset Dates Condition Status Assessment HTN (hypertension) I10 Active Problem Peripheral vascular disease I73.9 Active Assessment Diabetes E11.9 Active Problem CAD (coronary artery disease) I25.10 Active Problem History of coronary artery bypass graft Z95.1 Active Problem Diabetes E11.9 Active Problem Hypercholesteremia E78.0 Active Problem History of carotid stenosis Z86.79 Active Problem Family history of diabetes mellitus Z83.3 Active Problem HTN (hypertension) I10 Active Assessment Cramp of both lower extremities R25.2 Active Assessment Peripheral vascular disease I73.9 Active Assessment Hypercholesteremia E78.0 Active Medications Medication Code System Code Instructions Start Date End Date Status Dosage Lipitor [facility] [address]-29 10 MG Orally Once a day January 18, 2013 take 1 tablet (10 mg) by oral route once daily at bedtime Fish Oil Concentrate [facility] [address] 1000 MG Orally Twice a day January 18, 2013 1 capsule Levemir [facility] [address]-72 100 UNIT/ML Subcutaneous 2 times a day September 21, 2015 20 units in the morning and 20 units at bedtime. BD Insulin Syr Ultrafine II [facility] 8290-669776 31G X 5/16 subq 2 times a day September 21, 2015 10 units Aspirin [facility] [address]-88 81 MG Orally Once a day Aug 21, 2012 1 tablet by Oral route 1 time per day Lisinopril-Hydrochlorothiazide [facility] [address]-80 20-12.5 MG Orally Once a day Aug 21, 2012 take 1 tablet by oral route once daily Metoprolol Succinate ER [facility] [address]-66 25 MG Orally Once a day August 2 tablets MetFORMIN HCl ER [facility] [address]-87 500 MG Orally 2 times a day September 21, 2015 2 tablets Tradjenta [facility] [address]-99 5 MG Orally Once a day October 27, 2015 1 tablet Ondansetron [facility] [address]-70 4 MG Orally every 8 hrs September 29, 2015 1 tablet on the tongue and allow to dissolve Plavix [facility] [address]-06 75 MG Orally Once a day January 18, 2013 1 tablet by Oral route 1 time per day Procedures Procedure Coding System Code Date COMPREHEN METABOLIC PANEL CPT-4 23597 Feb 16, 2016 ASSAY OF MAGNESIUM CPT-4 07495 Feb 16, 2016 GLYCATED HEMOGLOBIN TEST CPT-4 18848 Feb 16, 2016 Office Visit, Est Pt., Level 3 CPT-4 14874 Feb 16, 2016 ASSAY OF VITAMIN D CPT-4 21041 Feb 16, 2016 VENIPUNCT, ROUTINE* CPT-4 75849 Feb 16, 2016 Vital Signs Date/Time: Feb 16, 2016 Cardiac Monitoring Heart Rate 82 bpm Weight 141.1 lbs Height 61 in BMI 26.66 Index Blood Pressure Diastolic 83 mmHg Blood Pressure Systolic 147 mmHg Results No Known Results Summary Purpose [employer] Submission
--- OUTSIDE RECORDS SUMMARY | 2017-02-10 19:55 | XMS REPORT ---
Author Author MICHAEL BURGOS Organization [employer] Address Unknown Phone Unavailable Care Team Providers Care Embedded Systems Software Developer Name Role Phone MICHAEL BURGOS CP Unavailable [...] Instructions Start Date End Date Status Dosage BD Insulin Syr Ultrafine II [facility] 8290-688879 31G X 5/16 subq 2 times a day September 21, 2015 10 units Results No Known Results Summary Purpose [employer] Submission
--- OUTSIDE RECORDS SUMMARY | 2017-02-10 19:56 | XMS REPORT ---
Author Author MICHAEL BURGOS Organization [employer] Address Unknown Phone Unavailable Care Team Providers Care Prototype Engineer Manager Name Role Phone MICHAEL BURGOS CP Unavailable [...] Instructions Start Date End Date Status Dosage Cholecalciferol [facility][NOTE 2] [address]25 UNIT Orally once weekly Feb 23, 2016 1 capsule Results No Known Results Summary Purpose [employer]Works Submission
[2017-02-10] MEDS ORDERED: NS IV 500 ML 500 ML IV ONE (21:05)
--- NOTE | 2017-02-10 21:05 | ED Neurological Problem ---
General Chief Complaint: Altered Mental Status Stated Complaint: ALTERED MENTAL STATUS Nursing Triage Note: CONFUSION/DISORIENTATION Nursing Sepsis Screen: No Definite Risk Source: patient, family (son and ) Exam Limitations: no limitations History of Present Illness Time seen by provider: 20:59 Initial Comments Patient presents to ER with her family with chief complaint of continued to be very confused worse today however this is been going on for over a week. She was seen not that long ago here in this ER and worked up given a negative CAT scan. Her blood sugar was very very high as well as her blood pressure so she was started on lisinopril as well as Levemir at a higher dose. Her blood sugars were no longer over the 500s according her to now stay in the 200-250 range. They do not have a blood pressure cuff at home to check it. They've not seen their doctor yet they see him tomorrow. She continues to be very confused but has no focal complaints, cough, chills, rash, nausea, fatigue, fevers, diarrhea, constipation, pain. She's had a coronary artery bypass graft but never had a stroke before. Allergies and Home Medications Allergies Coded Allergies: No Known Drug Allergies (Unverified , 03/13/10) Home Medications Aspirin 81 Mg Tablet.dr, 81 MG PO DAILY, (Reported) Atorvastatin Calcium 10 Mg Tablet, 10 MG PO HS, (Reported) Clopidogrel Bisulfate 75 Mg Tablet, 75 MG PO DAILY, (Reported) LAST FILLED #30 15 Insulin Determir 1,000 Units/10 Ml Soln, 15 UNITS SQ HS, (Reported) Lisinopril/Hydrochlorothiazide 1 Each Tablet, 1 TAB PO DAILY, (Reported) Metoprolol Succinate 25 Mg Tab.er.24h, 25 MG PO DAILY, (Reported) Constitutional: see HPI, No chills, No diaphoresis, No dizziness, No fever, No malaise, No weakness Eyes: Denies Blindness, Denies Blurred Vision, Denies Drainage, Denies Decreased Acuity, Denies Pain Ears, Nose, Mouth, Throat: denies ear pain, denies ear discharge Respiratory: No cough, No short of breath Cardiovascular: No chest pain, Hx of Intervention (cabg), No palpitations, vascular heart diseas Gastrointestinal: No abdominal pain, No constipation, No diarrhea, No nausea, No vomiting Genitourinary: No discharge, No dysuria : No Musculoskeletal: No back pain, No joint pain Skin: No pruritus, No rash Psychiatric/Neurological: Cognitive Dysfunction, Denies Headache, Denies Numbness, Denies Tingling Past Ydceutl-Ejyxgg-Mvsnzt Hx Patient Social History Alcohol Use: Denies Use Recreational Drug Use: No Smoking Status: Former Smoker Former Smoker/When Quit: Jun 30, 2009 2nd Hand Smoke Exposure: No Recent Foreign Travel: No Contact w/Someone Who Travel: No Recent Infectious Disease Expo: No Recent Hopitalizations: Yes Immunizations Up To Date Tetanus Booster (TDap): Unknown Date of Pneumonia Vaccine: Apr 18, 2013 Date of Influenza Vaccine: Apr 18, 2013 Seasonal Allergies Seasonal Allergies: No Surgeries HX Surgeries: Yes (STENTS X2,HYST/BSO ) Surgeries: Appendectomy, CABG, Coronary Stent, Gallbladder, Hysterectomy, Oophorectomy, Tonsillectomy Respiratory Hx Respiratory Disorders: Yes (HAS HOME O2 USES PRN) Respiratory Disorders: COPD Cardiovascular Hx 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) Cardiac Disorders: Coronary Artery Disease, Heart Attack, High Cholesterol, Hypertension, Peripheral Vascular Neurological Hx Neurological Disorders: No Reproductive System : No Hx Reproductive Disorders: No (HYSTERECTOMY) Female Reproductive Disorders: Denies PATIENT SVCS MGR History: Hysterectomy Genitourinary Hx Genitourinary Disorders: No Gastrointestinal Hx Gastrointestinal Disorders: Yes Gastrointestinal Disorders: Gastroesophageal Reflux Musculoskeletal Hx Musculoskeletal Disorders: Yes Musculoskeletal Disorders: Arthritis, Chronic Back Pain Endocrine Hx Endocrine Disorders: Yes (INSULIN + PILLS) Endocrine Disorders: Diabetes, Insulin dep, Diabetes, Non-Insulin dep HEENT HX ENT Disorders: Yes HEENT Disorders: Cataract Loss of Vision: Denies Hearing Impairment: Denies Cancer Hx Cancer: No Psychosocial Hx Psychiatric Problems: Yes Behavioral Health Disorders: Depression Integumentary HX Skin/Integumentary Disorder: No Blood Transfusions Hx Blood Disorders: No Adverse Reaction to a Blood Tr: No Family Medical History Significant Family History: Heart Disease, Cancer Family Medial History: Cancer 03 FATHER 03 MOTHER Cancer of colon 03 FATHER Family history: Cardiovascular disease 03 FATHER Malignant neoplasm of lung 03 MOTHER Myocardial infarction 03 FATHER Physical Exam Vital Signs Vital Sign - Last 12Hours 02/10/17 20:52 Temp 97.1 Pulse 67 Resp 18 B/P (MAP) 230/99 Pulse Ox 98 O2 Delivery Room Air Capillary Refill : Less Than 3 Seconds General Appearance: WD/WN, no apparent distress HEENT: PERRL/EOMI, normal ENT inspection, TMs normal, pharynx normal Neck: non-tender, full range of motion, normal inspection Respiratory: chest non-tender, lungs clear, normal breath sounds Cardiovascular: normal peripheral pulses, regular rate, rhythm, no edema, no JVD Peripheral Pulses: 2+ Radial Pulses (R), 2+ Radial Pulses (L) Gastrointestinal: normal bowel sounds, non tender, soft Back: normal inspection, no CVA tenderness Extremities: no pedal edema, no calf tenderness, normal capillary refill 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, no motor/sensory deficits, alert, normal mood/affect, other (oriented to self but not time place or situation) Crainal Nerves: normal hearing, normal speech, PERRL Coordination/Gait: normal gait Motor/Sensory: no motor deficit, no sensory deficit Skin: normal color, warm/dry Lymphatic: no adenopathy Focused Exam Lactic Acid Level Laboratory Tests Test 02/10/17 21:15 Lactic Acid Level 1.12 MMOL/L (0.50-2.00) Progress/Results/Core Measures Results/Orders Lab Results Laboratory Tests Test 02/10/17 21:00 02/10/17 21:05 02/10/17 21:15 Range/Units Urine Color YELLOW Urine Clarity CLEAR Urine pH 5 5-9 Urine Specific [place] 1.010 L 1.016-1.022 Urine Protein 1+ H NEGATIVE Urine Glucose (UA) 4+ H NEGATIVE Urine Ketones NEGATIVE NEGATIVE Urine Nitrite NEGATIVE NEGATIVE Urine Bilirubin NEGATIVE NEGATIVE Urine Urobilinogen NORMAL NORMAL MG/DL Urine Leukocyte Esterase NEGATIVE NEGATIVE Urine RBC (Auto) 2+ H NEGATIVE Urine RBC 2-5 H /HPF Urine WBC RARE /HPF Urine Squamous Epithelial Cells 0-2 /HPF Urine Crystals NONE /LPF Urine Bacteria TRACE /HPF Urine Casts NONE /LPF Urine Mucus NEGATIVE /LPF Urine Culture Indicated NO Urine Opiates Screen POSITIVE H NEGATIVE Urine Oxycodone Screen NEGATIVE NEGATIVE Urine Methadone Screen NEGATIVE NEGATIVE Urine Propoxyphene Screen NEGATIVE NEGATIVE Urine Barbiturates Screen NEGATIVE NEGATIVE Ur Tricyclic Antidepressants Screen NEGATIVE NEGATIVE Urine Phencyclidine Screen NEGATIVE NEGATIVE Urine Amphetamines Screen NEGATIVE NEGATIVE Urine Methamphetamines Screen NEGATIVE NEGATIVE Urine Benzodiazepines Screen NEGATIVE NEGATIVE Urine Cocaine Screen NEGATIVE NEGATIVE Urine Cannabinoids Screen NEGATIVE NEGATIVE White Blood Count 7.0 4.3-11.0 10^3/uL Red Blood Count 4.91 4.35-5.85 10^6/uL Hemoglobin 14.5 11.5-16.0 G/DL Hematocrit 44 35-52 % Mean Corpuscular Volume 89 80-99 FL Mean Corpuscular Hemoglobin 30 25-34 PG Mean Corpuscular Hemoglobin Concent 33 32-36 G/DL Red Cell Distribution Width 12.7 10.0-14.5 % Platelet Count 313 130-400 10^3/uL Mean Platelet Volume 10.2 7.4-10.4 FL Neutrophils (%) (Auto) 53 42-75 % Lymphocytes (%) (Auto) 40 12-44 % Monocytes (%) (Auto) 6 0-12 % Eosinophils (%) (Auto) 1 0-10 % Basophils (%) (Auto) 0 0-10 % Neutrophils # (Auto) 3.7 1.8-7.8 X 10^3 Lymphocytes # (Auto) 2.8 1.0-4.0 X 10^3 Monocytes # (Auto) 0.4 0.0-1.0 X 10^3 Eosinophils # (Auto) 0.1 0.0-0.3 10^3/uL Basophils # (Auto) 0.0 0.0-0.1 10^3/uL Sodium Level 138 135-145 MMOL/L Potassium Level 4.5 3.6-5.0 MMOL/L Chloride Level 104 98-107 MMOL/L Carbon Dioxide Level 22 21-32 MMOL/L Anion Gap 12 5-14 MMOL/L Blood Urea Nitrogen 31 H 7-18 MG/DL Creatinine 1.32 H 0.60-1.30 MG/DL Estimat Glomerular Filtration Rate 41 BUN/Creatinine Ratio 23 Glucose Level 297 H 70-105 MG/DL Glucometer 261 H 70-110 MG/DL Calcium Level 9.8 8.5-10.1 MG/DL Magnesium Level 2.2 1.8-2.4 MG/DL Total Bilirubin 0.3 0.1-1.0 MG/DL Aspartate Amino Transf (AST/SGOT) 16 5-34 U/L Alanine Aminotransferase (ALT/SGPT) 18 0-55 U/L Alkaline Phosphatase 89 40-136 U/L Troponin I < 0.30 <0.30 NG/ML Total Protein 7.4 6.4-8.2 GM/DL Albumin 4.4 3.2-4.5 GM/DL Serum Alcohol < 10 <10 MG/DL Lactic Acid Level 1.12 0.50-2.00 MMOL/L Ammonia 23 11-32 UMOL/L My Orders Orders - TY MATTHEWS Ct Head Wo-R/O Stroke (02/10/17 21:05) Alcohol (02/10/17 21:05) Cbc With Automated Diff (02/10/17 21:05) Comprehensive Metabolic Panel (02/10/17 21:05) Drug Screen Stat (Urine) (02/10/17 21:05) Lactic Acid Analyzer (02/10/17 21:05) Magnesium (02/10/17 21:05) Troponin I (02/10/17 21:05) Ua Culture If Indicated (02/10/17 21:05) Chest Pa/Lat (2 View) (02/10/17 21:05) Ekg Tracing (02/10/17 21:05) Monitor-Rhythm Ecg Trace Only (02/10/17 21:05) Saline Lock/Iv-Start (02/10/17 21:05) Ns Iv 500 Ml (Sodium Chloride 0.9%) (02/10/17 21:05) Accucheck Stat ONCE (02/10/17 21:05) Ammonia (02/10/17 21:14) Clonidine Tablet (Catapres Tablet) (02/10/17 23:00) Medications Given in ED Current Medications Medications Dose Ordered Sig/Sean Route Start Time Stop Time Status Last Admin Dose Admin Clonidine HCl 0.1 mg ONCE ONCE PO 02/10/17 23:00 02/10/17 23:01 DC 02/10/17 23:01 0.1 MG Sodium Chloride 500 ml @ 0 mls/hr Q0M ONCE IV 02/10/17 21:05 02/10/17 21:07 DC 02/10/17 21:15 0 MLS/HR Vital Signs/I&O Vital Sign - Last 12Hours 02/10/17 20:52 Temp 97.1 Pulse 67 Resp 18 B/P (MAP) 230/99 Pulse Ox 98 O2 Delivery Room Air Blood Pressure Mean: 142 Progress Note : Time: 21:20 Progress Note Review the normal CT scan from the sixth as well as a observation stay and plans were put in place to address the blood pressure and blood sugars. Her blood sugars are in better control however blood pressure tonight on repeat after resting and still 230s over 100s. She is having no chest pains or other serious symptoms so I am Remiss to Drop Her Blood Pressure Very Fast. Would still like to keep the blood pressure above 160/110. We'll get her CT scan to make sure there is not anything acute going on intracranially. It may be reasonable to get a CTA tonight. If the CT scan is normal we can give her clonidine her blood pressure stays up this thigh, 0.1 mg. ECG Initial ECG Impression Date: Feb 10, 2017 Initial ECG Impression Time: 21:12 Initial ECG Rate: 58 Initial ECG Rhythm: Normal Sinus Initial ECG Intervals: Normal Initial ECG Impression: Normal Initial ECG Comparisson: Unchanged Comment No ST wave elevation or depression. Diagnostic Imaging Diagonstic Imaging: CT Plain Films/CT/US/NM/MRI: head (c/o) Comments [facility]IA [facility] [place], [place] NAME: JACEY GARCIA [facility] REC#: [id number] PT STATUS: REG ER : 1955 PHYSICIAN: TY MATTHEWS MD ADMIT DATE: 02/10/17/ER Draft Date of Exam:02/10/17 CT HEAD WO-R/O STROKE INDICATION: Altered mental status TECHNIQUE: Routine non contrast-enhanced axial images were obtained from the skull base to the vertex. COMPARISON: 02/02/2017 FINDINGS: The ventricles and cortical sulci are stable in size and contour. There are confluent areas of abnormal, low attenuation in the periventricular white matter. This is consistent with chronic small vessel ischemic changes. There is no midline shift or mass-effect. No acute intra-axial hemorrhage is seen. There are no abnormal areas of increased or decreased density to suggest acute hemorrhage or edema. No extra-axial masses or collections are present. The bony calvarium is intact. The visualized paranasal sinuses are unremarkable. The mastoid air cells are clear. IMPRESSION: 1. No acute intracranial abnormality. No CT evidence of mass, acute infarct or intracranial hemorrhage. 2. Chronic small vessel ischemic changes in the deep white matter. Dictated on workstation # [id number] Dict: 02/10/172199 Trans: 02/10/172202 [facility] [id number] Interpreted by: ADRIEN COSTA Electronically signed by: Reviewed: Reviewed by Me Consults Consults : Consulting Physician: CLAU NORTON MD Consults Notes Feels pt needs neuro. She is known to Dr Pittman at [facility] so start there. Departure Impression Impression: Primary Impression: Acute encephalopathy Disposition: XF [facility]-TR[facility] HOSP ([place]) Condition: Stable Transfer Transfer Notes Gi[facility]anna at [facility] at 2340: Dr Matias, IM. Transfer Time: 00:23 Transfer Facility: [facility] Method of Transfer: EMS Departure-Patient Inst. Referrals: [facility] (PCP/Family) Primary Care Physician Copy Copies To 1: SORIN VELASCO TITUS J Feb 10, 2017 21:05
[2017-02-10 21:13] LABS: BILIRUBIN,URINE NEGATIVE (NEGATIVE); KETONES,URINE NEGATIVE (NEGATIVE); LEUKOCYTE ESTERASE ,URINE NEGATIVE (NEGATIVE); NITRITE,URINE NEGATIVE (NEGATIVE); PH,URINE 5 (5-9); PROTEIN,URINE 1+ (NEGATIVE); UROBILINOGEN,URINE NORMAL (NORMAL)
[2017-02-10 21:19] LABS: BASOPHILS % (AUTO) 0 % (0-10); EOSINOPHILS # (AUTO) 0.1 10^3/uL (0.0-0.3); EOSINOPHILS % (AUTO) 1 % (0-10); LYMPHOCYTES # (AUTO) 2.8 X 10^3 (1.0-4.0); LYMPHOCYTES % (AUTO) 40 % (12-44); MEAN CORPUSCULAR HEMOGLOBIN 30 PG (25-34); MEAN CORPUSCULAR HGB CONC 33 G/DL (32-36); MEAN CORPUSCULAR VOLUME 89 FL (80-99); MEAN PLATELET VOLUME 10.2 FL (7.4-10.4); MONOCYTES # (AUTO) 0.4 X 10^3 (0.0-1.0); MONOCYTES % (AUTO) 6 % (0-12); NEUTROPHILS # (AUTO) 3.7 X 10^3 (1.8-7.8); NEUTROPHILS % (AUTO) 53 % (42-75); PLATELET COUNT 313 10^3/uL (130-400); RED BLOOD COUNT 4.91 10^6/uL (4.35-5.85); RED CELL DISTRIBUTION WIDTH 12.7 % (10.0-14.5)
[2017-02-10 21:22] LABS: SQUAMOUS EPITHELIAL CELL,UR 0-2 /HPF; WBC,URINE RARE /HPF
[2017-02-10 21:36] LABS: ALANINE AMINOTRANSFERASE 18 U/L (0-55); ALBUMIN 4.4 GM/DL (3.2-4.5); ALCOHOL < 10 MG/DL (<10); ANION GAP 12 MMOL/L (5-14); ASPARTATE AMINO TRANSFERASE 16 U/L (5-34); BILIRUBIN,TOTAL 0.3 MG/DL (0.1-1.0); BLOOD UREA NITROGEN 31 MG/DL (7-18); BUN/CREATININE RATIO 23; CALCIUM 9.8 MG/DL (8.5-10.1); CARBON DIOXIDE 22 MMOL/L (21-32); CHLORIDE 104 MMOL/L (98-107); CREATININE SERUM 1.32 MG/DL (0.60-1.30); GFR ESTIMATED 41; GLUCOSE 297 MG/DL (70-105); MAGNESIUM 2.2 MG/DL (1.8-2.4); POTASSIUM 4.5 MMOL/L (3.6-5.0); SODIUM 138 MMOL/L (135-145); TOTAL PROTEIN 7.4 GM/DL (6.4-8.2)
[2017-02-10 21:42] LABS: TROPONIN I < 0.30 NG/ML (<0.30)
--- NOTE | 2017-02-10 22:03 | Diagnostic Imaging Report ---
INDICATION: Altered mental status TECHNIQUE: Routine non contrast-enhanced axial images were obtained from the skull base to the vertex. COMPARISON: 02/02/2017 FINDINGS: The ventricles and cortical sulci are stable in size and contour. There are confluent areas of abnormal, low attenuation in the periventricular white matter. This is consistent with chronic small vessel ischemic changes. There is no midline shift or mass-effect. No acute intra-axial hemorrhage is seen. There are no abnormal areas of increased or decreased density to suggest acute hemorrhage or edema. No extra-axial masses or collections are present. The bony calvarium is intact. The visualized paranasal sinuses are unremarkable. The mastoid air cells are clear. IMPRESSION: 1. No acute intracranial abnormality. No CT evidence of mass, acute infarct or intracranial hemorrhage. 2. Chronic small vessel ischemic changes in the deep white matter. Dictated by: Dictated on workstation # [id number]
[2017-02-10] MEDS ORDERED: cloNIDine 0.1 MG (CATAPRES) TAB PO ONE (23:00)
[2017-02-11 00:39] VITALS: BP 149/61
--- NOTE | 2017-02-11 07:42 | Diagnostic Imaging Report ---
INDICATION: Confusion, disorientation.. TECHNIQUE: Two view chest 10:12 PM CORRELATION STUDY: The 2016 FINDINGS: Poststernotomy changes are present. Scattered clips within the mediastinum. The heart size, mediastinal configuration and pulmonary vasculature are within normal limits. The lungs are clear with no consolidating infiltrate. There is no significant pleural effusion or pneumothorax. Mild degenerative changes of the thoracic spine with disc space narrowing and osteophyte formation. Surgical clips soft tissue of the neck on the left are present. IMPRESSION: 1. No radiographic evidence for acute abnormality of the chest. Dictated by: Dictated on workstation # [id number]
== END 2017-02-11 01:25 | disposition short-term general hospital (02) ==
LOC: EDUNIT# 19:48 → ER 19:50
DX: G93.40 Encephalopathy, unspecified (principal); J44.9 Chronic obstructive pulmonary disease, unspecified; E78.00 Pure hypercholesterolemia, unspecified; E11.40 Type 2 diabetes mellitus with diabetic neuropathy, unspecified; I10 Essential (primary) hypertension; I25.2 Old myocardial infarction; K21.9 Gastro-esophageal reflux disease without esophagitis; M19.90 Unspecified osteoarthritis, unspecified site; I73.9 Peripheral vascular disease, unspecified; E11.51 Type 2 diabetes mellitus with diabetic peripheral angiopathy without gangrene; F32.9 Major depressive disorder, single episode, unspecified; I25.10 Atherosclerotic heart disease of native coronary artery without angina pectoris; Z80.1 Family history of malignant neoplasm of trachea, bronchus and lung; Z82.49 Family history of ischemic heart disease and other diseases of the circulatory system; Z80.0 Family history of malignant neoplasm of digestive organs; Z95.1 Presence of aortocoronary bypass graft; Z79.82 Long term (current) use of aspirin; Z79.4 Long term (current) use of insulin; Z87.891 Personal history of nicotine dependence; Z90.49 Acquired absence of other specified parts of digestive tract; Z95.5 Presence of coronary angioplasty implant and graft; Z90.710 Acquired absence of both cervix and uterus
CPT/HCPCS: 36415; 70450; 71020; 80053; 80306; 80320; 81000; 82140; 82962; 83605; 83735; 84484; 85025; 93041; 96360; 96361

== ENCOUNTER 2018-11-05 23:17 | Emergency (ER) | payer SELFPAY ==
[~2018-11-05] VITALS: Ht 160 cm; Wt 66.7 kg
[~2018-11-05 23:17] MED LIST changes: +METF-397 PO; -METF500T4 PO
[2018-11-06] MEDS ORDERED: RT-ALBUTEROL/IPRATROPIUM 3 ML (DUONEB) VIAL INH ONE (00:30)
[2018-11-06] MEDS ORDERED: DOXYCYCLINE 100 MG (VIBRAMYCIN) TABLET PO STA (01:25)
[2018-11-06] MEDS ORDERED: predniSONE 20 MG TAB PO ONE (01:30)
[2018-11-06] MEDS ORDERED: RX-ALBUTEROL INHALER (PROAIR) 8 GM IH PRN (01:30)
--- NOTE | 2018-11-06 01:45 | ED Cough/URI ---
General Chief Complaint: Cough/Cold/Flu Symptoms Stated Complaint: POSS CHEST COLD Nursing Triage Note: Pt started with a cough about 3 days ago. She has been taking otc mucus relief medication which hasn't seemed to help. Sepsis Screen: No Definite Risk Source: patient Exam Limitations: no limitations History of Present Illness Date Seen by Provider: November 06, 2018 Time Seen by Provider: 00:03 Initial Comments Here with cough and congestion that started on for about 3 days. She's been taking [id number] medicine which is not helping. Denies fevers or wheezing. Does have history of COPD. States that she's got a pretty good cough. Does complain of upper respiratory congestion. Denies nausea or vomiting. Timing/Duration: getting worse, other Severity/Quality: moderate, productive cough, sputum Prior Episodes/Possible Cause: occasional episodes Modifying Factors: Worse With Coughing; Improves With Rest Associated Symptoms: cough, fever/chills, muscle aches, nasal congestion, nasal drainage, shortness of breath Allergies and Home Medications Allergies Coded Allergies: No Known Drug Allergies (Unverified , 03/13/10) Home Medications Aspirin 81 Mg Tablet.dr, 81 MG PO DAILY, (Reported) Atorvastatin Calcium 10 Mg Tablet, 10 MG PO HS, (Reported) Clopidogrel Bisulfate 75 Mg Tablet, 75 MG PO DAILY, (Reported) LAST FILLED #30 3-31-15 Insulin Determir 1,000 Units/10 Ml Soln, 15 UNITS SQ HS, (Reported) Lisinopril/Hydrochlorothiazide 1 Each Tablet, 1 TAB PO DAILY, (Reported) Metoprolol Succinate 25 Mg Tab.er.24h, 25 MG PO DAILY, (Reported) Patient Home Medication List Home Medication List Reviewed: Yes Review of Systems Review of Systems Constitutional: see HPI; No chills, No fever EENTM: nose congestion; No throat pain Respiratory: cough, phlegm Cardiovascular: no symptoms reported Gastrointestinal: No abdominal pain, No nausea, No vomiting Musculoskeletal: no symptoms reported Past Hitgdxw-Doshgh-Zmingz Hx Past Med/Social Hx: Reviewed Nursing Past Med/Soc Hx Patient Social History Alcohol Use: Denies Use Recreational Drug Use: No Smoking Status: Former Smoker Former Smoker, Quit: Jan 29, 2012 2nd Hand Smoke Exposure: No Recent Foreign Travel: No Contact w/Someone Who Travel: No Recent Infectious Disease Expo: No Recent Hopitalizations: No Physical Abuse: No Sexual Abuse: No Mistreated: No Immunizations Up To Date Tetanus Booster (TDap): Unknown Date of Pneumonia Vaccine: Apr 18, 2013 Date of Influenza Vaccine: Apr 18, 2013 Seasonal Allergies Seasonal Allergies: No Past Medical History Surgeries: Yes (STENTS X2, ) Appendectomy, CABG, Coronary Stent, Gallbladder, Hysterectomy, Oophorectomy, Tonsillectomy Respiratory: Yes (HAS HOME O2 USES PRN) COPD Currently Using CPAP: No Currently Using BIPAP: No Cardiac: Yes Coronary Artery Disease, Heart Attack, High Cholesterol, Hypertension, Peripheral Vascular Neurological: No Reproductive Disorders: No (HYSTERECTOMY) Female 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 Genitourinary: No Gastrointestinal: Yes Gastroesophageal Reflux Musculoskeletal: Yes Arthritis, Chronic Back Pain Endocrine: Yes Diabetes, Insulin dep, Diabetes, Non-Insulin dep HEENT: Yes Cataract Loss of Vision: Denies Hearing Impairment: Denies Cancer: No Psychosocial: Yes Depression Integumentary: No Blood Disorders: No Adverse Reaction/Blood Tranf: No Family Medical History Reviewed Nursing Family Hx Cancer 03 FATHER 03 MOTHER Cancer of colon 03 FATHER Family history: Cardiovascular disease 03 FATHER Malignant neoplasm of lung 03 MOTHER Myocardial infarction 03 FATHER Heart Disease, Cancer Physical Exam Vital Signs - First Documented 11/05/18 23:35 Temp 97.2 Pulse 78 Resp 18 B/P (MAP) 148/79 (102) Pulse Ox 96 O2 Delivery Room Air Capillary Refill : Less Than 3 Seconds Height: 5'3.00" Weight: 147lbs. 6.0oz. 66.150447hy; 21.9 BMI Method:Stated General Appearance: WD/WN, no apparent distress HEENT: PERRL/EOMI, pharynx normal, other (moderate bilateral nasal congestion with clear rhinorrhea) Neck: full range of motion, supple Respiratory: normal breath sounds, other (coarse sounding cough) Cardiovascular: regular rate, rhythm, no murmur Gastrointestinal: non tender, soft Extremities: non-tender, normal inspection Neurologic/Psychiatric: alert, oriented x 3 Skin: normal color, warm/dry Progress/Results/Core Measures Suspected Sepsis Recent Fever Within 48 Hours: No Infection Criteria Present: Suspected New Infection New/Unexplained Altered Menta: No Sepsis Screen: No Definite Risk SIRS Temperature:97.2 Pulse: 78 Respiratory Rate: 18 Blood Pressure 148 /79 Mean: 102 Results/Orders My Orders Orders - THOMAS GOTTLIEB MD Chest Pa/Lat (2 View) (11/06/18 00:03) Albuterol/Ipra Inhalation Soln (Duoneb I (11/06/18 00:30) Svn Small Volume Nebulizer (11/06/18 00:16) Doxycycline Hyclate Tablet (Vibramycin T (11/06/18 01:25) Prednisone Tablet (Deltasone Tablet) (11/06/18 01:30) Rx-Albuterol Inhaler (Rx-Proair) (11/06/18 01:30) Medications Given in ED Current Medications Medications Dose Ordered Sig/Sean Route Start Time Stop Time Status Last Admin Dose Admin Albuterol/ Ipratropium 3 ml ONCE ONCE INH 11/06/18 00:30 11/06/18 00:31 DC 11/06/18 00:32 3 ML Prednisone 40 mg ONCE ONCE PO 11/06/18 01:30 11/06/18 01:31 DC 11/06/18 01:36 40 MG Vital Signs/I&O 11/05/18 11/06/18 23:35 00:33 Temp 97.2 Pulse 78 Resp 18 B/P (MAP) 148/79 (102) Pulse Ox 96 95 O2 Delivery Room Air Room Air Capillary Refill : Less Than 3 Seconds Blood Pressure Mean: 102 Progress Note : Progress Note Seen and evaluated. Two-view chest x-ray and DuoNeb ordered. Monitor patient. No acute findings on chest x-ray. Albuterol MDI, prednisone 40 mg by mouth and doxycycline 100 mg by mouth given. We will continue outpatient treatment with prednisone and doxycycline. She follows with the clinic and would like to get her prescriptions filled there. I will (for her to take to the clinic pharmacy for prescription refill. She was informed that they will have to verify with the clinic doctor. Discharged home with return precautions. Patient verbalize understanding instructions and agreement with plan. Diagnostic Imaging Diagonstic Imaging: Xray Plain Films/CT/US/NM/MRI: chest Comments No acute findings Reviewed: Reviewed by Me Departure Impression Primary Impression: Upper respiratory infection Qualified Codes: J06.9 - Acute upper respiratory infection, unspecified Additional Impression: Bronchitis Disposition: HOME, SELF-CARE Condition: Stable Departure-Patient Inst. Decision time for Depature: 01:44 Referrals: [facility] (PCP/Family) Primary Care Physician Patient Instructions: Acute Bronchitis, Adult (DC), Viral Upper Respiratory Infection, Adult (DC) Add. Discharge Instructions: All discharge instructions reviewed with patient and/or family. Voiced understanding. Take medications as directed. You should go to the pharmacist first thing in the morning at the clinic and given the prescriptions. They will have to verify that with the on-call doctor to get those filled. Return for worse pain, fever, vomiting, weakness, breathing problems or other concerns as needed. Use albuterol MDI inhaler 2 puffs every 6 hours as needed for wheezing or increased cough. Follow up with your Dr. in a few days for recheck. Scripts Doxycycline Hyclate (Doxycycline Hyclate) 100 Mg Tablet 100 MG PO BID, #20 TAB 0 Refills Prov: THOMAS GOTTLIEB MD 11/06/18 Prednisone (Prednisone) 20 Mg Tab 40 MG PO DAILY, #10 TAB 0 Refills Prov: THOMAS GOTTLIEB MD 11/06/18 Copy Copies To 1: SORIN VELASCO TIMOTHY D MD November 06, 2018 01:45
[2018-11-06] MEDS ORDERED: DOXY100T2 PO (01:46)
[2018-11-06] MEDS ORDERED: PRD20T PO (01:46)
[2018-11-06 01:54] VITALS: BP 157/88
--- NOTE | 2018-11-06 07:07 | Diagnostic Imaging Report ---
EXAM: CHEST PA/LAT (2 VIEW) INDICATION: Chest radiograph 02/10/2017. COMPARISON: Chest radiograph 02/10/2017. FINDINGS: Normal heart size and central pulmonary vascularity. Sternotomy with mediastinal markers. Lungs are clear. No pleural effusion or pneumothorax. No acute osseous findings. IMPRESSION: No acute cardiopulmonary findings. Dictated by: Dictated on workstation # [id number]
== END 2018-11-06 01:58 | disposition home or self-care (01) ==
LOC: EDUNIT# 23:17 → ER 23:20
DX: J06.9 Acute upper respiratory infection, unspecified (principal); J44.9 Chronic obstructive pulmonary disease, unspecified; I25.10 Atherosclerotic heart disease of native coronary artery without angina pectoris; I25.2 Old myocardial infarction; E78.00 Pure hypercholesterolemia, unspecified; I10 Essential (primary) hypertension; E11.51 Type 2 diabetes mellitus with diabetic peripheral angiopathy without gangrene; I73.9 Peripheral vascular disease, unspecified; K21.9 Gastro-esophageal reflux disease without esophagitis; F32.9 Major depressive disorder, single episode, unspecified; Z79.82 Long term (current) use of aspirin; Z79.02 Long term (current) use of antithrombotics/antiplatelets; Z79.4 Long term (current) use of insulin; Z80.0 Family history of malignant neoplasm of digestive organs; Z80.1 Family history of malignant neoplasm of trachea, bronchus and lung; Z82.49 Family history of ischemic heart disease and other diseases of the circulatory system; Z87.891 Personal history of nicotine dependence; Z90.49 Acquired absence of other specified parts of digestive tract; Z95.1 Presence of aortocoronary bypass graft; Z95.5 Presence of coronary angioplasty implant and graft; Z90.710 Acquired absence of both cervix and uterus; Z90.89 Acquired absence of other organs; Z99.81 Dependence on supplemental oxygen
CPT/HCPCS: 71046; 94640

== ENCOUNTER 2019-04-27 05:52 | Emergency (ER) | payer MEDICARE ==
[~2019-04-27] VITALS: Ht 152 cm; Wt 59.0 kg
[~2019-04-27 05:52] MED LIST changes: +DOXY100T2 PO; +PRD20T PO
[2019-04-27 06:22] LABS: BILIRUBIN,URINE NEGATIVE (NEGATIVE); CLARITY,URINE CLEAR; COLOR,URINE YELLOW; GLUCOSE, URINE (UA) 4+ (NEGATIVE); KETONES,URINE NEGATIVE (NEGATIVE); LEUKOCYTE ESTERASE ,URINE NEGATIVE (NEGATIVE); NITRITE,URINE NEGATIVE (NEGATIVE); PH,URINE 6.5 (5-9); PROTEIN,URINE 2+ (NEGATIVE)
[2019-04-27] MEDS ORDERED: NS IV 1000 ML 1,000 ML IV STA (06:27)
[2019-04-27 06:30] LABS: BACTERIA,URINE FEW /HPF; SQUAMOUS EPITHELIAL CELL,UR 0-2 /HPF
[2019-04-27] MEDS ORDERED: ASPIRIN 81 MG CHEW (CHILDREN'S ASA) PO ONE (06:30)
[2019-04-27] MEDS ORDERED: ONDANSETRON 4 MG/2 ML (SDV) Z0FRAN IVP ONE (06:30)
--- NOTE | 2019-04-27 06:33 | ED Chest Pain ---
General Chief Complaint: Glucose Problems Stated Complaint: VOMITING,BLOOD SUGAR HIGH, DIABETIC,DIARRHEA Source: patient, spouse Exam Limitations: no limitations (CASSIE DOSS PA STUDENT) History of Present Illness Date Seen by Provider: Apr 27, 2019 Time Seen by Provider: 06:15 Initial Comments Patient presents today with a two day history of not feeling well, high blood sugar, nausea and diarrhea. She also began having chest pain last night at 2200. Her spouse claims that she has recently been having heart burn after every meal but she does not remember having anything to eat prior to the chest pain starting. The chest pain is described as a heaviness and is causing her to be short of breath. She has not taken any aspirin to alleviate the chest pain and any activity makes the chest pain and SOB worse. Timing/Duration: 12 hours Severity/Quality: pressure Location: substernal Radiation: no radiation Activities at Onset: rest Prior CP/Workup: heart attack, other (open heart) Modifying Factors: improves with other (No alleviating factors at this time) ASA po YARDER BOSS: No NTG SL YARDER BOSS: No Associated Symptoms: fatigue, nausea/vomiting, shortness of breath (CASSIE DOSS PA STUDENT) Timing/Duration: 12 hours Severity/Quality: pressure Location: central Radiation: no radiation Prior CP/Workup: cardiac cath, heart attack ASA po YARDER BOSS: No NTG SL YARDER BOSS: No Associated Symptoms: fatigue, nausea/vomiting, shortness of breath, weakness (THOMAS MADDOX MD) Allergies and Home Medications Allergies Coded Allergies: No Known Drug Allergies (Unverified , 03/13/10) Home Medications Aspirin 81 Mg Tablet.dr, 81 MG PO DAILY, (Reported) Atorvastatin Calcium 10 Mg Tablet, 10 MG PO HS, (Reported) Clopidogrel Bisulfate 75 Mg Tablet, 75 MG PO DAILY, (Reported) LAST FILLED #30 3-31-15 Doxycycline Hyclate 100 Mg Tablet, 100 MG PO BID Prescribed by: THOMAS GOTTLIEB on 11/06/18145 Insulin Determir 1,000 Units/10 Ml Soln, 15 UNITS SQ HS, (Reported) Lisinopril/Hydrochlorothiazide 1 Each Tablet, 1 TAB PO DAILY, (Reported) Metoprolol Succinate 25 Mg Tab.er.24h, 25 MG PO DAILY, (Reported) Prednisone 20 Mg Tab, 40 MG PO DAILY Prescribed by: THOMAS GOTTLIEB on 11/06/18145 Patient Home Medication List Home Medication List Reviewed: Yes (THOMAS GOTTLIEB MD) Review of Systems Review of Systems Constitutional: weakness EENTM: No Symptoms Reported Respiratory: See HPI Cardiovascular: See HPI Gastrointestinal: See HPI Genitourinary: No Symptoms Reported Musculoskeletal: no symptoms reported Skin: no symptoms reported Psychiatric/Neurological: No Symptoms Reported Endocrine: See HPI Hematologic/Lymphatic: No Symptoms Reported (CASSIE DOSS) Constitutional: see HPI; No chills, No fever Respiratory: Denies Cough, Denies Wheezing Cardiovascular: Chest Pain; Denies Edema Gastrointestinal: Diarrhea, Nausea; Denies Vomiting (THOMAS GOTTLIEB MD) All Other Systems Reviewed Negative Unless Noted: Yes (THOMAS GOTTLIEB MD) Past Qqvgpgx-Hsxadm-Ooqlbf Hx Past Med/Social Hx: Reviewed Nursing Past Med/Soc Hx (THOMAS GOTTLIEB MD) Patient Social History Former Smoker, Quit: Jan 29, 2012 2nd Hand Smoke Exposure: No Recent Foreign Travel: No Contact w/Someone Who Travel: No Recent Hopitalizations: No (CASSIE DOSS) Immunizations Up To Date Tetanus Booster (TDap): Unknown Date of Pneumonia Vaccine: Apr 18, 2013 Date of Influenza Vaccine: Apr 18, 2013 (CASSIE DOSS) Seasonal Allergies Seasonal Allergies: No (CASSIE DOSS) Past Medical History Surgeries: Yes (STENTS X2, ) Appendectomy, CABG, Coronary Stent, Gallbladder, Hysterectomy, Oophorectomy, Tonsillectomy Respiratory: Yes (HAS HOME O2 USES PRN) COPD Currently Using CPAP: No Currently Using BIPAP: No Cardiac: Yes Coronary Artery Disease, Heart Attack, High Cholesterol, Hypertension, Peripheral Vascular Neurological: No Reproductive Disorders: No (HYSTERECTOMY) 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 Genitourinary: No Gastrointestinal: Yes Gastroesophageal Reflux Musculoskeletal: Yes Arthritis, Chronic Back Pain Endocrine: Yes Diabetes, Insulin dep, Diabetes, Non-Insulin dep HEENT: Yes Cataract Loss of Vision: Denies Hearing Impairment: Denies Cancer: No Psychosocial: Yes Depression Integumentary: No Blood Disorders: No Adverse Reaction/Blood Tranf: No (CASSIE DOSS) Family Medical History Reviewed Nursing Family Hx (THOMAS GOTTLIEB MD) Cancer 03 FATHER 03 MOTHER Cancer of colon 03 FATHER Family history: Cardiovascular disease 03 FATHER Malignant neoplasm of lung 03 MOTHER Myocardial infarction 03 FATHER Heart Disease, Cancer (CASSIE DOSS STUDENT) Physical Exam Vital Signs Vital Signs - First Documented 04/27/19 06:05 Temp 36.6 Pulse 68 Resp 22 B/P (MAP) 174/81 (112) Pulse Ox 95 O2 Delivery Room Air (THOMAS GOTTLIEB MD) Vital Signs Capillary Refill : (CASSIE DOSS STUDENT) Height, Weight, BMI Height: 5'3.00" Weight: 147lbs. 6.0oz. 66.490961am; 21.9 BMI Method:Stated General Appearance: No Apparent Distress HEENT: PERRL/EOMI, Pharynx Normal Respiratory: Chest Non Tender, Lungs Clear, Normal Breath Sounds, No Accessory Muscle Use, No Respiratory Distress Cardiovascular: Regular Rate, Rhythm, No Edema, No Gallop, No JVD, No Murmur, Normal Peripheral Pulses Gastrointestinal: Normal Bowel Sounds, No Organomegaly, No Pulsatile Mass, Non Tender, Soft Extremity: Normal Inspection, No Calf Tenderness, No Pedal Edema Neurologic/Psychiatric: Alert, Oriented x3, Normal Mood/Affect Skin: Normal Color, Warm/Dry Lymphatic: No Adenopathy (CASSIE DOSS STUDENT) General Appearance: No Apparent Distress, WD/WN HEENT: PERRL/EOMI, Pharynx Normal Neck: Non Tender, Supple Respiratory: Lungs Clear, Normal Breath Sounds Cardiovascular: Regular Rate, Rhythm, No Murmur Gastrointestinal: Normal Bowel Sounds, No Organomegaly, No Pulsatile Mass, Non Tender, Soft Extremity: Normal Inspection, Normal Range of Motion, Non Tender, No Calf Tenderness Neurologic/Psychiatric: Alert, Oriented x3 Skin: Normal Color, Warm/Dry (THOMAS GOTTLIEB MD) Progress/Results/Core Measures Results/Orders Lab Results Laboratory Tests Test 04/27/19 06:15 04/27/19 06:44 Range/Units Urine Color YELLOW Urine Clarity CLEAR Urine pH 6.5 5-9 Urine Specific [place] 1.015 L 1.016-1.022 Urine Protein 2+ H NEGATIVE Urine Glucose (UA) 4+ H NEGATIVE Urine Ketones NEGATIVE NEGATIVE Urine Nitrite NEGATIVE NEGATIVE Urine Bilirubin NEGATIVE NEGATIVE Urine Urobilinogen NORMAL NORMAL MG/DL Urine Leukocyte Esterase NEGATIVE NEGATIVE Urine RBC (Auto) NEGATIVE NEGATIVE Urine RBC NONE /HPF Urine WBC NONE /HPF Urine Squamous Epithelial Cells 0-2 /HPF Urine Crystals NONE /LPF Urine Bacteria FEW H /HPF Urine Casts NONE /LPF Urine Mucus NEGATIVE /LPF Urine Culture Indicated NO White Blood Count 8.1 4.3-11.0 10^3/uL Red Blood Count 4.62 4.35-5.85 10^6/uL Hemoglobin 13.2 11.5-16.0 G/DL Hematocrit 40 35-52 % Mean Corpuscular Volume 86 80-99 FL Mean Corpuscular Hemoglobin 29 25-34 PG Mean Corpuscular Hemoglobin Concent 33 32-36 G/DL Red Cell Distribution Width 13.0 10.0-14.5 % Platelet Count 297 130-400 10^3/uL Mean Platelet Volume 9.6 7.4-10.4 FL Neutrophils (%) (Auto) 57 42-75 % Lymphocytes (%) (Auto) 32 12-44 % Monocytes (%) (Auto) 10 0-12 % Eosinophils (%) (Auto) 1 0-10 % Basophils (%) (Auto) 0 0-10 % Neutrophils # (Auto) 4.6 1.8-7.8 X 10^3 Lymphocytes # (Auto) 2.6 1.0-4.0 X 10^3 Monocytes # (Auto) 0.8 0.0-1.0 X 10^3 Eosinophils # (Auto) 0.1 0.0-0.3 10^3/uL Basophils # (Auto) 0.0 0.0-0.1 10^3/uL Prothrombin Time 12.6 12.2-14.7 SEC INR Comment 0.9 0.8-1.4 Activated Partial Thromboplast Time 26 24-35 SEC Sodium Level 139 135-145 MMOL/L Potassium Level 3.6 3.6-5.0 MMOL/L Chloride Level 100 98-107 MMOL/L Carbon Dioxide Level 23 21-32 MMOL/L Anion Gap 16 H 5-14 MMOL/L Blood Urea Nitrogen 27 H 7-18 MG/DL Creatinine 1.26 0.60-1.30 MG/DL Estimat Glomerular Filtration Rate 43 BUN/Creatinine Ratio 21 Glucose Level 274 H 70-105 MG/DL Calcium Level 10.0 8.5-10.1 MG/DL Corrected Calcium 9.7 8.5-10.1 MG/DL Magnesium Level 1.5 L 1.6-2.4 MG/DL Total Bilirubin 0.2 0.1-1.0 MG/DL Aspartate Amino Transf (AST/SGOT) 18 5-34 U/L Alanine Aminotransferase (ALT/SGPT) 29 0-55 U/L Alkaline Phosphatase 79 40-136 U/L Myoglobin 33.1 10.0-92.0 NG/ML Troponin I < 0.028 <0.028 NG/ML Total Protein 7.1 6.4-8.2 GM/DL Albumin 4.4 3.2-4.5 GM/DL (THOMAS GOTTLIEB MD) My Orders Orders - THOMAS GOTTLIEB MD Ua Culture If Indicated (04/27/19 06:17) Cbc With Automated Diff (04/27/19 06:27) Magnesium (04/27/19 06:27) Chest 1 View, Ap/Pa Only (04/27/19 06:27) Ekg Tracing (04/27/19 06:27) Cardiac Profile 1 (04/27/19 06:27) Comprehensive Metabolic Panel (04/27/19 06:27) Myoglobin Serum (04/27/19 06:27) Protime With Inr (04/27/19:27) Partial Thromboplastin Time (04/27/19:27) O2 (04/27/19 06:27) Monitor-Rhythm Ecg Trace Only (04/27/19 06:27) Lipid Panel (04/28/19 06:00) Ed Iv/Invasive Line Start (04/27/19 06:27) Aspirin Chewable Tablet (Baby Aspirin Ch (04/27/19 06:30) Ondansetron Injection (Zofran Injectio (04/27/19 06:30) Ns Iv 1000 Ml (Sodium Chloride 0.9%) (04/27/19 06:27) (THOMAS GOTTLIEB MD) Medications Given in ED Current Medications Medications Dose Ordered Sig/Sean Route Start Time Stop Time Status Last Admin Dose Admin Aspirin 324 mg ONCE ONCE PO 04/27/19 06:30 04/27/19 06:31 DC 04/27/19 06:40 324 MG Ondansetron HCl 4 mg ONCE ONCE IVP 04/27/19 06:30 04/27/19 06:31 DC 04/27/19 06:58 4 MG (THOMAS GOTTLIEB MD) Vital Signs/I&O 04/27/19 04/27/19 06:05 06:05 Temp 36.6 Pulse 68 Resp 22 B/P (MAP) 174/81 (112) Pulse Ox 95 95 O2 Delivery Room Air (THOMAS GOTTLIEB MD) Progress Progress Note : Progress Note Seen and evaluated the patient and agree with above except as indicated. Have directed the plan of care. Patient is here with initial report of high blood sugar and diarrhea but subsequently during the evaluation mentioned that she had chest pain that has been going on for 12 hours. Chest pain she reports is central and is a pressure or heaviness. It has not gotten better. She has not taken anything for that. Her reports she did not know about chest pain either. Her main complaint initially was diarrhea and the blood sugar issues which she was relating to melatonin that is coated sugar. also reports that he's had diarrhea recently but is doing better. Patient reports that she has had open-heart surgery in the past. Also admits to taking insulin 3 times a day. Denies dysuria. No report of blood in her stool or urine. Physical exam as above. Plan for chest pain workup as well as UA. We will give an S1 liter bolus and Zofran 4 mg IV. ASA 324 mg by mouth ordered. Monitor patient. 0805: Patient doing much better. No pain. Fluids almost complete. Patient able to walk to the bathroom without difficulty. No significant findings on evaluation other than elevated blood sugar. Patient was covered by this. Discharged home with return precautions. Patient verbalize understanding instructions and agreement with plan. (THOMAS GOTTLIEB MD) Initial ECG Impression Date: Apr 27, 2019 Initial ECG Impression Time: 06:25 Initial ECG Rate: 69 Initial ECG Rhythm: Normal Sinus Comment Sinus rhythm with flat T waves laterally. Normal axis. No evidence of ST elevation NC. Similar to previous of 02/10/17 although had T-wave inversions in the lateral leads at that time. Interpreted by me. (THOMAS GOTTLIEB MD) Diagnostic Imaging Diagonstic Imaging: Xray Plain Films/CT/US/NM/MRI: chest Comments [facility]. POS [place], [place] POS NAME: JACEY GARCIA MED REC#: [id number] PT STATUS: REG ER : 1955 PHYSICIAN: THOMAS GOTTLIEB MD ADMIT DATE: 04/27/19/ER Draft POSDate of Exam:04/27/19 CHEST 1 VIEW, AP/PA ONLY INDICATION: Patient not feeling well, blood glucose has been running high, has intermittent chest pain for the last 8 hours. Patient is having nausea and generalized malaise. COMPARISON STUDY: Chest 11-06-18. FINDINGS: Portable upright view of the chest demonstrates previous coronary artery bypass graft changes. Heart size and vascularity are normal. The lungs are clear. There are no pleural effusions. IMPRESSION: No acute findings. Dictated on workstation # [id number] Dict: 04/27/19 0726 Trans: 04/27/19 0749 [facility] [id number] Interpreted by: JAYDEN MEDINA MD Electronically signed by: (THOMAS GOTTLIEB MD) Departure Impression Primary Impression: Hyperglycemia Additional Impressions: Diarrhea Qualified Codes: R19.7 - Diarrhea, unspecified Chest pain Qualified Codes: R07.9 - Chest pain, unspecified Disposition: 01 HOME, SELF-CARE Condition: Improved Departure-Patient Inst. Decision time for Depature: 08:03 (THOMAS GOTTLIEB MD) Referrals: [facility] (PCP/Family) Primary Care Physician Patient Instructions: Chest Pain (DC), Diarrhea in Adolescents and Adults, Hyperglycemia, Adult (DC) Add. Discharge Instructions: All discharge instructions reviewed with patient and/or family. Voiced understanding. Continue home medications as previously prescribed. You need to follow a clear liquid or light diet for the next 24 hours and then advance as tolerated. Follow-up with your Dr. in a few days for recheck. Continue home medicines as previously prescribed. Watch your blood sugars closely and record. If blood sugars remain elevated, you need to follow-up with your physician for further evaluation and adjustments of your meds as needed. CASSIE DOSS STUDENT Apr 27, 2019 06:33 THOMAS PADILLA MD Apr 27, 2019 06:50 POS
[2019-04-27 06:59] LABS: BASOPHILS % (AUTO) 0 % (0-10); EOSINOPHILS # (AUTO) 0.1 10^3/uL (0.0-0.3); EOSINOPHILS % (AUTO) 1 % (0-10); HEMATOCRIT 40 % (35-52); HEMOGLOBIN 13.2 G/DL (11.5-16.0); LYMPHOCYTES # (AUTO) 2.6 X 10^3 (1.0-4.0); LYMPHOCYTES % (AUTO) 32 % (12-44); MEAN CORPUSCULAR HEMOGLOBIN 29 PG (25-34); MEAN CORPUSCULAR HGB CONC 33 G/DL (32-36); MEAN CORPUSCULAR VOLUME 86 FL (80-99); MEAN PLATELET VOLUME 9.6 FL (7.4-10.4); MONOCYTES # (AUTO) 0.8 X 10^3 (0.0-1.0); MONOCYTES % (AUTO) 10 % (0-12); NEUTROPHILS # (AUTO) 4.6 X 10^3 (1.8-7.8); NEUTROPHILS % (AUTO) 57 % (42-75); PLATELET COUNT 297 10^3/uL (130-400); WHITE BLOOD COUNT 8.1 10^3/uL (4.3-11.0)
[2019-04-27 07:11] LABS: INR 0.9 (0.8-1.4); PROTHROMBIN TIME PATIENT 12.6 SEC (12.2-14.7)
[2019-04-27 07:20] LABS: ALANINE AMINOTRANSFERASE 29 U/L (0-55); ALBUMIN 4.4 GM/DL (3.2-4.5); ALKALINE PHOSPHATASE 79 U/L (40-136); BILIRUBIN,TOTAL 0.2 MG/DL (0.1-1.0); BUN/CREATININE RATIO 21; CARBON DIOXIDE 23 MMOL/L (21-32); CHLORIDE 100 MMOL/L (98-107); CREATININE SERUM 1.26 MG/DL (0.60-1.30); GFR ESTIMATED 43; GLUCOSE 274 MG/DL (70-105); MAGNESIUM 1.5 MG/DL (1.6-2.4); POTASSIUM 3.6 MMOL/L (3.6-5.0); SODIUM 139 MMOL/L (135-145); TOTAL PROTEIN 7.1 GM/DL (6.4-8.2)
--- NOTE | 2019-04-27 07:50 | Diagnostic Imaging Report ---
INDICATION: Patient not feeling well, blood glucose has been running high, has intermittent chest pain for the last 8 hours. Patient is having nausea and generalized malaise. COMPARISON STUDY: Chest 11-06-18. FINDINGS: Portable upright view of the chest demonstrates previous coronary artery bypass graft changes. Heart size and vascularity are normal. The lungs are clear. There are no pleural effusions. IMPRESSION: No acute findings. Dictated by: Dictated on workstation # [id number]
--- NOTE | 2019-04-27 08:03 | NUR ---
AMB TO BATHROOM WITHOUT PROBLEM. DR GOTTLIEB TOLD PATIENT SHE COULD TAKE HER HOME MEDS.
[2019-04-27 08:16] VITALS: BP 147/51
== END 2019-04-27 08:16 | disposition home or self-care (01) ==
LOC: EDUNIT# 05:52 → ER 05:56
DX: E11.65 Type 2 diabetes mellitus with hyperglycemia (principal); R19.7 Diarrhea, unspecified; R07.9 Chest pain, unspecified; I25.2 Old myocardial infarction; I10 Essential (primary) hypertension; E11.9 Type 2 diabetes mellitus without complications; I25.10 Atherosclerotic heart disease of native coronary artery without angina pectoris; F32.9 Major depressive disorder, single episode, unspecified; E78.00 Pure hypercholesterolemia, unspecified; K21.9 Gastro-esophageal reflux disease without esophagitis; Z95.5 Presence of coronary angioplasty implant and graft; Z90.710 Acquired absence of both cervix and uterus; Z99.81 Dependence on supplemental oxygen; Z95.1 Presence of aortocoronary bypass graft; Z90.49 Acquired absence of other specified parts of digestive tract; Z79.82 Long term (current) use of aspirin; Z79.02 Long term (current) use of antithrombotics/antiplatelets; Z79.4 Long term (current) use of insulin; Z82.49 Family history of ischemic heart disease and other diseases of the circulatory system; Z80.0 Family history of malignant neoplasm of digestive organs
CPT/HCPCS: 36415; 71045; 80053; 81000; 82962; 83735; 83874; 84484; 85025; 85610; 85730; 93005; 93041; 96361; 96374

== ENCOUNTER 2020-12-23 16:58 | Emergency (ER) | payer MEDICARE, MEDICAID ==
[~2020-12-23] VITALS: Ht 170.1 cm; Wt 65.0 kg
[~2020-12-23 16:58] MED LIST changes: -LISI10TA2 PO; +LISI10TA25 PO; +LISI1TAB46 PO; -LISI1TAB8 PO; -TRAM50TA2 PO; +TRM50T PO
--- NOTE | 2020-12-23 17:20 | ED Neck-Back Pain/Injury ---
General Chief Complaint: Head/Cervical Problems Stated Complaint: L SHOULDER PAIN Source of Information: Patient Exam Limitations: No Limitations (KAREEN COATES MED STUDENT) History of Present Illness Date Seen by Provider: Dec 23, 2020 Time Seen by Provider: 17:16 Initial Comments Mrs. Garcia is a 65 yo female that presents today with R shoulder pain. She states that she woke up with the pain about 2 days ago and has gotten a bit worse since. She cannot think of any injury she might have sustained and denies previous injury in the past. Rates the pain about a 5, Dull, non-radiating. Located around the acromioclavicular joint, as well as some lower cervical tenderness. She has tried taking asprin with no relief. She denies any weakness or numbness in the arm, she also has full range of motion. She Complains of a "heavy chest", SOB and headache. She admits to some diarrhea yesterday. She does have a significant cardiac history that includes bypass, had a heart cath in 2013. She is a former smoker and has diabetes. (KAREEN COATES MED STUDENT) Initial Comments Patient took 2 tablets of aspirin earlier today. Echocardiogram by Dr. Nova 2014 shows an EF of 50% with some mild diastolic dysfunction. Mild left ventricular hypertrophy noted. She is known to Dr. Nova for cardiology as well as her CABG was done by Dr. Nava and her left carotid endarterectomy done by Dr. Lima. She has peripheral arterial disease treated by Dr. Nava. Congestive heart failure with historic EF of 40% and partially recovered ejection fraction. She has a history of hypertension, hyperlipidemia, insulin- dependent diabetes and sick sinus syndrome with chronic bradycardia. (TY REYNOLDS) Initial Comments The above should state left shoulder, not right shoulder. (ASTRID JACOB MD) Allergies and Home Medications Allergies Coded Allergies: No Known Drug Allergies (Unverified , 03/13/10) Home Medications Aspirin 81 Mg Tablet., 81 MG PO DAILY, (Reported) Atorvastatin Calcium 10 Mg Tablet, 10 MG PO HS, (Reported) Clopidogrel Bisulfate 75 Mg Tablet, 75 MG PO DAILY, (Reported) LAST FILLED #30 15 Doxycycline Hyclate 100 Mg Tablet, 100 MG PO BID Prescribed by: THOMAS GOTTLIEB on 5/10/19 0146 Insulin Determir 1,000 Units/10 Ml Soln, 15 UNITS SQ HS, (Reported) Lisinopril/Hydrochlorothiazide 1 Each Tablet, 1 TAB PO DAILY, (Reported) Metoprolol Succinate 25 Mg Tab.er.24h, 25 MG PO DAILY, (Reported) Prednisone 20 Mg Tab, 40 MG PO DAILY Prescribed by: THOMAS GOTTLIEB on 11/06/18145 Patient Home Medication List Home Medication List Reviewed: Yes (TY REYNOLDS) Review of Systems Constitutional: No chills, No diaphoresis, No fever EENTM: No hearing loss, No vision loss Respiratory: No cough, No short of breath Cardiovascular: chest pain (Heaviness); No palpitations Gastrointestinal: No abdominal pain, No constipation; diarrhea; No nausea, No vomiting Genitourinary: No dysuria, No hematuria Musculoskeletal: other (Soreness in the Posterior shoulder/cervical region) Skin: No rash Psychiatric/Neurological: Headache (KAREEN COATES) Past Patpauz-Bqlknv-Sakmqy Hx Patient Social History Alcohol Use: Denies Use Type Used: Cigarettes Former Smoker, Quit: Jan 29, 2012 2nd Hand Smoke Exposure: No Recent Hopitalizations: No (KAREEN COATES) Immunizations Up To Date Tetanus Booster (TDap): Unknown PED Vaccines UTD: Yes Date of Pneumonia Vaccine: Apr 18, 2013 Date of Influenza Vaccine: Apr 18, 2013 (KAREEN COATES) Seasonal Allergies Seasonal Allergies: No (KAREEN COATES) Past Medical History Surgeries: Yes (STENTS X2, ) Appendectomy, CABG, Coronary Stent, Gallbladder, Hysterectomy, Oophorectomy, Tonsillectomy Respiratory: Yes (HAS HOME O2 USES PRN) COPD Currently Using CPAP: No Currently Using BIPAP: No Cardiac: Yes Coronary Artery Disease, Heart Attack, High Cholesterol, Hypertension, Peripheral Vascular Neurological: No Reproductive Disorders: No (HYSTERECTOMY) 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, 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 Genitourinary: No Gastrointestinal: Yes Gastroesophageal Reflux Musculoskeletal: Yes Arthritis, Chronic Back Pain Endocrine: Yes Diabetes, Insulin dep, Diabetes, Non-Insulin dep HEENT: Yes Cataract Loss of Vision: Denies Hearing Impairment: Denies Cancer: No Psychosocial: Yes Depression Integumentary: No Blood Disorders: No Adverse Reaction/Blood Tranf: No (KAREEN COATES STUDENT) Family Medical History Cancer 03 FATHER 03 MOTHER Cancer of colon 03 FATHER Family history: Cardiovascular disease 03 FATHER Malignant neoplasm of lung 03 MOTHER Myocardial infarction 03 FATHER Heart Disease, Cancer (JAXONAlacritechKAREEN MED STUDENT) Physical Exam Vital Signs Vital Signs - First Documented 12/23/20 12/23/20 17:04 18:55 Temp 36.0 Pulse 77 Resp 20 B/P (MAP) 136/73 (94) Pulse Ox 95 O2 Delivery Room Air O2 Flow Rate 2.00 FiO2 97 (TY REYNOLDS) Vital Signs Capillary Refill : (JAXONAlacritechKAREEN Mobile Complete STUDENT) Height, Weight, BMI Height: 5'3.00" Weight: 147lbs. 6.0oz. 66.429113lw; 25.00 BMI Method:Stated General Appearance: No Apparent Distress, WD/WN Cardiovascular: Regular Rate, Rhythm, No Edema, No Murmur, Normal Peripheral Pulses Respiratory: Chest Non Tender, Lungs Clear, Normal Breath Sounds, No Accessory Muscle Use, No Respiratory Distress Peripheral Pulses: 2+ Radial Pulses (R), 2+ Radial Pulses (L) Gastrointestinal: Normal Bowel Sounds, No Organomegaly, No Pulsatile Mass, Non Tender, Soft Back: Other (Some minor soreness in the Lower cervical spine, not exxacerbated by palpation) Extremity: Normal Capillary Refill, Normal Inspection, Normal Range of Motion, Non Tender, No Calf Tenderness, No Pedal Edema, Other (Normal ROM, Strength, Sensation, and Pulses in Both arms bilaterally. No tenderness made worse by palpation in L shoulder) Neurologic/Psychiatric: Alert, Oriented x3, Normal Mood/Affect Skin: Normal Color, Warm/Dry (JAXONAlacritechKAREEN Mobile Complete STUDENT) Progress/Results/Core Measures Results/Orders Lab Results Laboratory Tests Test 12/23/20 18:01 12/23/20 18:07 12/23/20 18:14 12/23/20 18:45 Range/Units Glucometer 139 H 70-110 MG/DL White Blood Count 7.9 4.3-11.0 10^3/uL Red Blood Count 4.37 3.80-5.11 10^6/uL Hemoglobin 12.7 11.5-16.0 g/dL Hematocrit 39 35-52 % Mean Corpuscular Volume 90 80-99 fL Mean Corpuscular Hemoglobin 29 25-34 pg Mean Corpuscular Hemoglobin Concent 32 32-36 g/dL Red Cell Distribution Width 13.2 10.0-14.5 % Platelet Count 363 130-400 10^3/uL Mean Platelet Volume 9.7 9.0-12.2 fL Immature Granulocyte % (Auto) 0 % Neutrophils (%) (Auto) 57 42-75 % Lymphocytes (%) (Auto) 30 12-44 % Monocytes (%) (Auto) 11 0-12 % Eosinophils (%) (Auto) 2 0-10 % Basophils (%) (Auto) 0 0-10 % Neutrophils # (Auto) 4.5 1.8-7.8 10^3/uL Lymphocytes # (Auto) 2.4 1.0-4.0 10^3/uL Monocytes # (Auto) 0.9 0.0-1.0 10^3/uL Eosinophils # (Auto) 0.1 0.0-0.3 10^3/uL Basophils # (Auto) 0.0 0.0-0.1 10^3/uL Immature Granulocyte # (Auto) 0.0 0.0-0.1 10^3/uL Sodium Level 139 135-145 MMOL/L Potassium Level 5.1 H 3.6-5.0 MMOL/L Chloride Level 103 98-107 MMOL/L Carbon Dioxide Level 22 21-32 MMOL/L Anion Gap 14 5-14 MMOL/L Blood Urea Nitrogen 30 H 7-18 MG/DL Creatinine 1.50 H 0.60-1.30 MG/DL Estimat Glomerular Filtration Rate 35 BUN/Creatinine Ratio 20 Glucose Level 135 H 70-105 MG/DL Calcium Level 9.8 8.5-10.1 MG/DL Corrected Calcium 9.7 8.5-10.1 MG/DL Magnesium Level 1.9 1.6-2.4 MG/DL Total Bilirubin 0.3 0.1-1.0 MG/DL Aspartate Amino Transf (AST/SGOT) 18 5-34 U/L Alanine Aminotransferase (ALT/SGPT) 14 0-55 U/L Alkaline Phosphatase 75 40-136 U/L Myoglobin 54.5 10.0-92.0 NG/ML Troponin I < 0.028 <0.028 NG/ML Total Protein 7.6 6.4-8.2 GM/DL Albumin 4.1 3.2-4.5 GM/DL Influenza Type A (RT-PCR) Not Detected Not Detecte Influenza Type B (RT-PCR) Not Detected Not Detecte SARS-CoV-2 RNA (RT-PCR) Not Detected Not Detecte Prothrombin Time 13.6 12.2-14.7 SEC INR Comment 1.0 0.8-1.4 Activated Partial Thromboplast Time 29 24-35 SEC Test 12/23/20 20:00 Range/Units Troponin I < 0.028 <0.028 NG/ML (TY REYNOLDS) My Orders Orders - TY REYNOLDS Morphine Injection (Morphine Injection (12/23/20 18:58) Troponin I (12/23/20 20:00) (TY REYNOLDS) Medications Given in ED Current Medications Medications Dose Ordered Sig/Sean Route Start Time Stop Time Status Last Admin Dose Admin Aspirin 162 mg ONCE ONCE PO 12/23/20 17:30 12/23/20 17:31 DC 12/23/20 18:09 162 MG Nitroglycerin 0.4 mg UD PRN SL 12/23/20 17:30 12/23/20 18:09 0.4 MG (TY REYNOLDS) Vital Signs/I&O 12/23/20 12/23/20 17:04 18:55 Temp 36.0 Pulse 77 Resp 20 B/P (MAP) 136/73 (94) Pulse Ox 95 O2 Delivery Room Air Nasal Cannula O2 Flow Rate 2.00 FiO2 97 (TY REYNOLDS) Progress Progress Note #1: Time: 18:09 Progress Note An IV has been established and the patient has been ordered 2 tablets of 81 mg aspirin as well as nitroglycerin for her 6 out of 10 left shoulder chest and jaw pain. She is a chronic vasculopath with all of the risk factors. Her pain has been going on solid for the past 2 days. She does not have an elevated troponin and we will make consultation with cardiology for disposition. Progress Note #2: Time: 20:34 Progress Note #3: Time: 20:35 Progress Note The patient is symptom-free and has 2 delta troponins that are negative. 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 Patient is in agreement with this plan. (TY REYNOLDS) Progress Note : Progress Note Patient was seen and examined by me along with the medical student. During our interview she described more of a pain in the chest radiating up into the shoulder and neck. This was not exacerbated or alleviated by anything in particular. She does have a history of coronary artery disease. She also descri bes shortness of breath and some diarrhea. She has been Covid vaccinated but given the shortness of breath and diarrhea screening for Covid seems appropriate as well. Chest pain orders have been initiated. Care of the patient was transitioned to Dr. Reynolds at shift change. (ASTRID JACOB MD) Initial ECG Impression Date: Dec 23, 2020 Initial ECG Impression Time: 17:44 Initial ECG Rate: 72 Initial ECG Rhythm: Normal Sinus Initial ECG Intervals: Normal Initial ECG Impression: Normal Initial ECG Comparisson: Unchanged Comment Normal sinus rhythm without clinically relevant ST changes (TY REYNOLDS) Diagnostic Imaging Diagonstic Imaging: Xray Plain Films/CT/US/NM/MRI: chest Comments NAME: JACEY GARCIA MED REC#: [id number] PT STATUS: REG ER : 1955 PHYSICIAN: ASTRID JACOB MD ADMIT DATE: 12/23/20/ER Draft Date of Exam:12/23/20 CHEST 1 VIEW, AP/PA ONLY INDICATION: Chest pain. EXAMINATION: Chest, 12/23/2020. COMPARISON: 04/27/2019. FINDINGS: The left hemidiaphragm is elevated. Lungs are clear. No infiltrate or effusion. There is no pneumothorax. Heart unremarkable. Pulmonary vasculature normal. Sternotomy wires and mediastinal clips noted. IMPRESSION: Chronic findings. No acute cardiopulmonary process. Dictated on workstation # [id number] Dict: 12/23/201917 Trans: 12/23/201925 [facility] [id number] Interpreted by: SHANTAL LOPEZ MD Electronically signed by: Reviewed: Reviewed by Me (TY REYNOLDS) Departure Impression Primary Impression: Chest pain Disposition: 01 HOME, SELF-CARE Condition: Stable Departure-Patient Inst. Decision time for Depature: 20:35 (TY REYNOLDS) Referrals: [facility] (PCP/Family) Primary Care Physician SHELLI NOVA MD Patient Instructions: Chest Pain (DC) Add. Discharge Instructions: Call Dr. Nova's clinic first thing Friday morning and get followed up in the first 1 to 2 days if possible. Tramadol 1 tablet every 6 hours as necessary for severe breakthrough pain. Tylenol 650 mg every 6 hours as necessary for pain. Muscle rubs with capsaicin oil or cream such as icy hot, Biofreeze etc. All discharge instructions reviewed with patient and/or family. Voiced understanding. Scripts Tramadol HCl (Tramadol HCl) 50 Mg Tablet 50 MG PO Q6H PRN for PAIN for 3 Days, #15 TAB 0 Refills Prov: TY REYNOLDS 12/23/20 Medical Student Attestation and Attending Note: I have personally interviewed and examined this patient along with Kareen Coates, MS4. I have reviewed student documentation including history, physical, and assessments. I agree with the documentation except where otherwise noted. Exam: General: Alert, oriented, no acute distress, well developed HEENT: Normocephalic and atraumatic Heart: Regular rate and rhythm without murmur Lungs: Clear to auscultation bilaterally with normal effort, chest nontender to palpation Musculoskeletal: No tenderness in the shoulder or chest. No pain with range of motion of the left shoulder Abdomen: Soft, nontender, nondistended, normal bowel sounds Neuropsych: Alert, oriented, no focal deficits Skin: Warm and dry without rashes (ASTRID JACOB MD) KAREEN COATES MED STUDENT Dec 23, 2020 17:20 TY REYNOLDS Dec 23, 2020 18:09 ASTRID JACOB MD Dec 23, 2020 18:43
[2020-12-23] MEDS ORDERED: ASPIRIN 81 MG CHEW (CHILDREN'S ASA) PO ONE (17:30)
[2020-12-23] MEDS ORDERED: NITROGLYCERIN 0.4 MG SL TABS BTL 25'S SL PRN (17:30)
[2020-12-23 18:14] LABS: BASOPHILS % (AUTO) 0 % (0-10); EOSINOPHILS # (AUTO) 0.1 10^3/uL (0.0-0.3); EOSINOPHILS % (AUTO) 2 % (0-10); HEMATOCRIT 39 % (35-52); HEMOGLOBIN 12.7 g/dL (11.5-16.0); LYMPHOCYTES # (AUTO) 2.4 10^3/uL (1.0-4.0); LYMPHOCYTES % (AUTO) 30 % (12-44); MEAN CORPUSCULAR HEMOGLOBIN 29 pg (25-34); MEAN CORPUSCULAR HGB CONC 32 g/dL (32-36); MEAN CORPUSCULAR VOLUME 90 fL (80-99); MEAN PLATELET VOLUME 9.7 fL (9.0-12.2); MONOCYTES # (AUTO) 0.9 10^3/uL (0.0-1.0); MONOCYTES % (AUTO) 11 % (0-12); NEUTROPHILS # (AUTO) 4.5 10^3/uL (1.8-7.8); NEUTROPHILS % (AUTO) 57 % (42-75); PLATELET COUNT 363 10^3/uL (130-400); WHITE BLOOD COUNT 7.9 10^3/uL (4.3-11.0)
[2020-12-23 18:24] LABS: ALBUMIN 4.1 GM/DL (3.2-4.5); POTASSIUM 5.1 MMOL/L (3.6-5.0)
[2020-12-23 18:25] LABS: CALCIUM 9.8 MG/DL (8.5-10.1)
[2020-12-23 18:26] LABS: TOTAL PROTEIN 7.6 GM/DL (6.4-8.2)
[2020-12-23 18:28] LABS: BILIRUBIN,TOTAL 0.3 MG/DL (0.1-1.0)
[2020-12-23 18:30] LABS: CREATININE SERUM 1.5 MG/DL (0.60-1.30)
[2020-12-23 18:33] LABS: MAGNESIUM 1.9 MG/DL (1.6-2.4)
[2020-12-23] MEDS ORDERED: morphine INJ 10 MG/ML 1ML (SYR OR VIAL) IVP STA (18:58)
[2020-12-23 19:20] LABS: PROTHROMBIN TIME PATIENT 13.6 SEC (12.2-14.7)
--- NOTE | 2020-12-23 19:28 | Diagnostic Imaging Report ---
INDICATION: Chest pain. EXAMINATION: Chest, 12/23/2020. COMPARISON: 04/27/2019. FINDINGS: The left hemidiaphragm is elevated. Lungs are clear. No infiltrate or effusion. There is no pneumothorax. Heart unremarkable. Pulmonary vasculature normal. Sternotomy wires and mediastinal clips noted. IMPRESSION: Chronic findings. No acute cardiopulmonary process. Dictated by: Dictated on workstation # [id number]
[2020-12-23] MEDS ORDERED: TRM50T PO (20:37)
[2020-12-23 20:44] VITALS: BP 122/83
== END 2020-12-23 20:44 | disposition home or self-care (01) ==
LOC: EDUNIT# 16:58 → ER 17:00
DX: R07.9 Chest pain, unspecified (principal); J44.9 Chronic obstructive pulmonary disease, unspecified; I25.2 Old myocardial infarction; I10 Essential (primary) hypertension; I25.10 Atherosclerotic heart disease of native coronary artery without angina pectoris; E78.00 Pure hypercholesterolemia, unspecified; E11.9 Type 2 diabetes mellitus without complications; Z87.891 Personal history of nicotine dependence; Z20.822 Contact with and (suspected) exposure to COVID-19; Z95.5 Presence of coronary angioplasty implant and graft; Z95.1 Presence of aortocoronary bypass graft; Z79.82 Long term (current) use of aspirin; Z79.899 Other long term (current) drug therapy; Z79.01 Long term (current) use of anticoagulants; Z79.52 Long term (current) use of systemic steroids; Z79.4 Long term (current) use of insulin
CPT/HCPCS: 36415; 71045; 80053; 82947; 83735; 83874; 84484; 85025; 85610; 85730; 87636; 93005; 93041; 96374

== ENCOUNTER 2021-06-10 17:01 | Emergency (ER) | payer MEDICARE, MEDICAID ==
[~2021-06-10] VITALS: Ht 147 cm; Wt 63.0 kg
--- NOTE | 2021-06-10 17:07 | ED General ---
General Stated Complaint: LOW BS Source of Information: Patient, EMS Exam Limitations: No Limitations History of Present Illness Date Seen by Provider: Jun 10, 2021 Time Seen by Provider: 17:06 Initial Comments To ER by EMS from home with reports of hypoglycemia. She is an insulin- dependent diabetic. This happened last week with a sugar down to 22. EMS arrived and corrected the hypoglycemia and she refused transport. Today, sugar dropped again to 22. EMS arrived and started D10. On arrival her sugar is up to 110 and she states that she feels fine. She is not sure when she ate last or what she had. When asked about her medication regimen she has no idea what pills she takes. She does not know what type of insulin she takes or how many units. She just states that she takes it 3 times a day. She does not check her blood sugar before checking it because she does not like poking her finger. Timing/Duration: 1-2 Days Severity: Moderate Associated Systoms: No Nausea/Vomiting Allergies and Home Medications Allergies Coded Allergies: No Known Drug Allergies (Unverified , 03/13/10) Patient Home Medication List Home Medication List Reviewed: Yes Aspirin (Aspir 81) 81 Mg Tablet.dr, 81 MG PO DAILY, (Reported) Entered as Reported by: SIDDHARTH POP on 09/18/15 1746 Atorvastatin Calcium (Atorvastatin Calcium) 10 Mg Tablet, 10 MG PO HS, (Reported) Entered as Reported by: IRWIN HAYES on 02/03/17 1129 Clopidogrel Bisulfate (Plavix 75 Mg) 75 Mg Tablet, 75 MG PO DAILY, (Reported) Entered as Reported by: ENOCH PALACIOS on 03/11/13 1824 Doxycycline Hyclate (Doxycycline Hyclate) 100 Mg Tablet, 100 MG PO BID Prescribed by: THOMAS GOTTLIEB on 11/06/18 0146 Insulin Determir (Levemir) 1,000 Units/10 Ml Soln, 15 UNITS SQ HS, (Reported) Entered as Reported by: IRWIN HAYES on 02/03/17 1102 Lisinopril/Hydrochlorothiazide (Lisinopril-Hctz 20-12.5 mg Tab) 1 Each Tablet, 1 TAB PO DAILY, (Reported) Entered as Reported by: IRWIN HAYES on 02/03/17 1128 Metoprolol Succinate (Toprol Xl) 25 Mg Tab.er.24h, 25 MG PO DAILY, (Reported) Entered as Reported by: OTONIEL ANDREWS on 09/19/151950 Prednisone (Prednisone) 20 Mg Tab, 40 MG PO DAILY Prescribed by: THOMAS GOTTLIEB on 11/06/18 014 Tramadol HCl (Tramadol HCl) 50 Mg Tablet, 50 MG PO Q6H PRN for PAIN Prescribed by: TY MATTHEWS on 12/23/202036 Review of Systems Review of Systems Constitutional: see HPI EENTM: see HPI Respiratory: no symptoms reported Cardiovascular: no symptoms reported Genitourinary: no symptoms reported Musculoskeletal: no symptoms reported Skin: no symptoms reported Psychiatric/Neurological: No Symptoms Reported Hematologic/Lymphatic: No Symptoms Reported Past Vfsjrhy-Rzsyvv-Pxkmnx Hx Immunizations Up To Date Tetanus Booster (TDap): Unknown PED Vaccines UTD: Yes Seasonal Allergies Seasonal Allergies: No Past Medical History Surgeries: Yes (STENTS X2, ) Appendectomy, CABG, Coronary Stent, Gallbladder, Hysterectomy, Oophorectomy, Tonsillectomy Respiratory: Yes (HAS HOME O2 USES PRN) COPD Currently Using CPAP: No Currently Using BIPAP: No Cardiac: Yes Coronary Artery Disease, Heart Attack, High Cholesterol, Hypertension, Peripheral Vascular Neurological: No Reproductive Disorders: No (HYSTERECTOMY) 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, 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 Genitourinary: No Gastrointestinal: Yes Gastroesophageal Reflux Musculoskeletal: Yes Arthritis, Chronic Back Pain Endocrine: Yes Diabetes, Insulin dep, Diabetes, Non-Insulin dep HEENT: Yes Cataract Loss of Vision: Denies Hearing Impairment: Denies Cancer: No Psychosocial: Yes Depression Integumentary: No Blood Disorders: No Adverse Reaction/Blood Tranf: No Family Medical History Cancer 03 FATHER 03 MOTHER Cancer of colon 03 FATHER Family history: Cardiovascular disease 03 FATHER Malignant neoplasm of lung 03 MOTHER Myocardial infarction 03 FATHER Heart Disease, Cancer Physical Exam Vital Signs Vital Signs - First Documented 06/10/21 17:06 Temp 36.3 Pulse 61 Resp 16 B/P (MAP) 113/85 (94) Pulse Ox 97 O2 Delivery Room Air Capillary Refill : Height, Weight, BMI Height: 5'3.00" Weight: 147lbs. 6.0oz. 66.477000qv; 22.00 BMI Method:Stated General Appearance: No Apparent Distress, WD/WN, Chronically ill (Appears older than stated age), Other (Alert and oriented, talkative . ) Eyes: Bilateral Eye Normal Inspection, Bilateral Eye PERRL, Bilateral Eye EOMI Respiratory: No Accessory Muscle Use, No Respiratory Distress Cardiovascular: Regular Rate, Rhythm, Normal Peripheral Pulses Gastrointestinal: Non Tender, Soft Neurologic/Psychiatric: Alert, Oriented x3 Skin: Normal Color, Warm/Dry Progress/Results/Core Measures Suspected Sepsis SIRS Temperature: Pulse: Respiratory Rate: Laboratory Tests 06/10/21 17:17: White Blood Count 9.0 Blood Pressure / Mean: Laboratory Tests 06/10/21 17:17: Creatinine 1.98H, Platelet Count 446H, Total Bilirubin 0.3 Results/Orders Lab Results Laboratory Tests Test 06/10/21 17:17 06/10/21 17:20 06/10/21 18:26 06/10/21 18:34 Range/Units White Blood Count 9.0 4.3-11.0 10^3/uL Red Blood Count 4.06 3.80-5.11 10^6/uL Hemoglobin 11.3 L 11.5-16.0 g/dL Hematocrit 36 35-52 % Mean Corpuscular Volume 89 80-99 fL Mean Corpuscular Hemoglobin 28 25-34 pg Mean Corpuscular Hemoglobin Concent 31 L 32-36 g/dL Red Cell Distribution Width 13.9 10.0-14.5 % Platelet Count 446 H 130-400 10^3/uL Mean Platelet Volume 10.0 9.0-12.2 fL Immature Granulocyte % (Auto) 0 % Neutrophils (%) (Auto) 69 42-75 % Lymphocytes (%) (Auto) 23 12-44 % Monocytes (%) (Auto) 6 0-12 % Eosinophils (%) (Auto) 2 0-10 % Basophils (%) (Auto) 0 0-10 % Neutrophils # (Auto) 6.1 1.8-7.8 10^3/uL Lymphocytes # (Auto) 2.1 1.0-4.0 10^3/uL Monocytes # (Auto) 0.6 0.0-1.0 10^3/uL Eosinophils # (Auto) 0.2 0.0-0.3 10^3/uL Basophils # (Auto) 0.0 0.0-0.1 10^3/uL Immature Granulocyte # (Auto) 0.0 0.0-0.1 10^3/uL Sodium Level 136 135-145 MMOL/L Potassium Level 5.5 H 3.6-5.0 MMOL/L Chloride Level 106 98-107 MMOL/L Carbon Dioxide Level 18 L 21-32 MMOL/L Anion Gap 12 5-14 MMOL/L Blood Urea Nitrogen 52 H 7-18 MG/DL Creatinine 1.98 H 0.60-1.30 MG/DL Estimat Glomerular Filtration Rate 25 BUN/Creatinine Ratio 26 Glucose Level 133 H 70-105 MG/DL Calcium Level 9.7 8.5-10.1 MG/DL Corrected Calcium 9.5 8.5-10.1 MG/DL Total Bilirubin 0.3 0.1-1.0 MG/DL Aspartate Amino Transf (AST/SGOT) 16 5-34 U/L Alanine Aminotransferase (ALT/SGPT) 8 0-55 U/L Alkaline Phosphatase 59 40-136 U/L Total Protein 7.9 6.4-8.2 GM/DL Albumin 4.2 3.2-4.5 GM/DL Urine Color YELLOW Urine Clarity SL CLOUDY Urine pH 5.5 5-9 Urine Specific Warner 1.025 H 1.016-1.022 Urine Protein NEGATIVE NEGATIVE Urine Glucose (UA) NEGATIVE NEGATIVE Urine Ketones NEGATIVE NEGATIVE Urine Nitrite POSITIVE H NEGATIVE Urine Bilirubin NEGATIVE NEGATIVE Urine Urobilinogen 0.2 < = 1.0 MG/DL Urine Leukocyte Esterase 1+ H NEGATIVE Urine RBC (Auto) NEGATIVE NEGATIVE Urine RBC NONE /HPF Urine WBC 5-10 H /HPF Urine Squamous Epithelial Cells 0-2 /HPF Urine Crystals NONE /LPF Urine Bacteria LARGE H /HPF Urine Casts NONE /LPF Urine Mucus NEGATIVE /LPF Urine Culture Indicated YES Glucometer 77 70-110 MG/DL SARS-CoV-2 RNA (RT-PCR) Detected H Not Detecte My Orders Orders - LON FREED APRN Cbc With Automated Diff (06/10/21 17:04) Comprehensive Metabolic Panel (06/10/21 17:04) Ua Culture If Indicated (06/10/21 17:04) Ed Iv/Invasive Line Start (06/10/21 17:04) Cho 75g/M 0snack (21-2400 Kyle) (06/10/21 Dinner) Urine Culture (06/10/21 17:20) Ceftriaxone 1 Gm Pre-Mix (Rocephin 1 Gm (06/10/21 18:00) Ns Iv 1000 Ml (Sodium Chloride 0.9%) (06/10/21 18:00) Covid 19 Inhouse Test (06/10/21 18:35) Medications Given in ED Current Medications Medications Dose Ordered Sig/Sean Route Start Time Stop Time Status Last Admin Dose Admin Ceftriaxone Sodium/Dextrose 50 ml @ 100 mls/hr ONCE ONCE IV 06/10/21 18:00 06/10/21 18:29 DC 06/10/21 18:16 100 MLS/HR Vital Signs/I&O 06/10/21 17:06 Temp 36.3 Pulse 61 Resp 16 B/P (MAP) 113/85 (94) Pulse Ox 97 O2 Delivery Room Air Capillary Refill : Departure Communication (Admissions) 1910-she is positive for Covid. Symptoms of poor appetite began about 4 to 5 days ago so will assume symptom onset date of 06/06/21. She has no cough no fevers no shortness of breath. She has had both Covid vaccines and a booster. Discussed with her getting the monoclonal antibody infusion, the alternatives to it and the risks associated with it. She would like to proceed with getting it. Impression Primary Impression: Hypoglycemia Additional Impression: COVID-19 Disposition: 01 HOME, SELF-CARE Condition: Stable Departure-Patient Inst. Decision time for Depature: 17:59 Referrals: [facility] (PCP/Family) Primary Care Physician Patient Instructions: HYPOGLYCEMIA Add. Discharge Instructions: Stop your glimepiride. Cut your insulin dose in half. Call [facility] tomorrow to make an appointment to be seen. Pharmacy department here the hospital will call you tomorrow to set up a time for your monoclonal antibody infusion. LON FREED APRN Jun 10, 2021 17:07
[2021-06-10 17:28] LABS: BILIRUBIN,URINE NEGATIVE (NEGATIVE); CLARITY,URINE SL CLOUDY; COLOR,URINE YELLOW; GLUCOSE, URINE (UA) NEGATIVE (NEGATIVE); KETONES,URINE NEGATIVE (NEGATIVE); LEUKOCYTE ESTERASE ,URINE 1+ (NEGATIVE); NITRITE,URINE POSITIVE (NEGATIVE); PH,URINE 5.5 (5-9); PROTEIN,URINE NEGATIVE (NEGATIVE)
[2021-06-10 17:32] LABS: ALBUMIN 4.2 GM/DL (3.2-4.5)
[2021-06-10 17:33] LABS: POTASSIUM 5.5 MMOL/L (3.6-5.0)
[2021-06-10 17:34] LABS: CALCIUM 9.7 MG/DL (8.5-10.1)
[2021-06-10 17:35] LABS: TOTAL PROTEIN 7.9 GM/DL (6.4-8.2)
[2021-06-10 17:36] LABS: BASOPHILS % (AUTO) 0 % (0-10); EOSINOPHILS # (AUTO) 0.2 10^3/uL (0.0-0.3); EOSINOPHILS % (AUTO) 2 % (0-10); HEMATOCRIT 36 % (35-52); HEMOGLOBIN 11.3 g/dL (11.5-16.0); LYMPHOCYTES # (AUTO) 2.1 10^3/uL (1.0-4.0); LYMPHOCYTES % (AUTO) 23 % (12-44); MEAN CORPUSCULAR HEMOGLOBIN 28 pg (25-34); MEAN CORPUSCULAR HGB CONC 31 g/dL (32-36); MEAN CORPUSCULAR VOLUME 89 fL (80-99); MONOCYTES # (AUTO) 0.6 10^3/uL (0.0-1.0); MONOCYTES % (AUTO) 6 % (0-12); NEUTROPHILS # (AUTO) 6.1 10^3/uL (1.8-7.8); NEUTROPHILS % (AUTO) 69 % (42-75); PLATELET COUNT 446 10^3/uL (130-400)
[2021-06-10 17:37] LABS: BILIRUBIN,TOTAL 0.3 MG/DL (0.1-1.0)
[2021-06-10 17:39] LABS: CREATININE SERUM 1.98 MG/DL (0.60-1.30)
[2021-06-10 17:45] LABS: BACTERIA,URINE LARGE /HPF; SQUAMOUS EPITHELIAL CELL,UR 0-2 /HPF
[2021-06-10] MEDS ORDERED: NS IV 1000 ML 1,000 ML IV SCH (18:00)
[2021-06-10] MEDS ORDERED: cefTRIAXone 1 GM PRE-MIX 50 ML IV ONE (18:00)
[2021-06-10 19:43] VITALS: BP 109/48
== END 2021-06-10 19:43 | disposition home or self-care (01) ==
LOC: EDUNIT# 17:01 → ER 17:01
DX: U07.1 COVID-19 (principal); E11.649 Type 2 diabetes mellitus with hypoglycemia without coma; J44.9 Chronic obstructive pulmonary disease, unspecified; I25.10 Atherosclerotic heart disease of native coronary artery without angina pectoris; I10 Essential (primary) hypertension; E78.00 Pure hypercholesterolemia, unspecified; Z79.4 Long term (current) use of insulin; Z79.82 Long term (current) use of aspirin; Z79.01 Long term (current) use of anticoagulants; Z79.899 Other long term (current) drug therapy
CPT/HCPCS: 36415; 80053; 81000; 82947; 85025; 87077; 87088; 87186; 87636; 96374